=== PATIENT | male | born 1975 | race Caucasian/White ===

== ENCOUNTER 2019-07-29 23:26 | Observation (INO) | payer OTHER, SELFPAY ==
[2019-07-29 23:27] VITALS: BP 133/116; PULSE 179; RESP 18; TEMP 36.2; O2SAT 96; BMI 31.7
[2019-07-29 23:32] VITALS: BP 124/90; PULSE 99; RESP 16; O2SAT 94
--- NOTE | 2019-07-29 23:32 | EKG12_ITS ---
Test Reason : CP Blood Pressure : / mmHG Vent. Rate : 096 BPM Atrial Rate : 096 BPM P-R Int : 176 ms QRS Dur : 088 ms QT Int : 326 ms P-R-T Axes : 038 -01 004 degrees QTc Int : 411 ms Normal sinus rhythm Normal ECG Confirmed by RAN ESCOBAR, ANGELINE ([id number]), purchasing expeditor BRIANNA KNIGHT ([id number]) on 08/01/2019 10:37:42 AM Referred By: DARNELL Confirmed By:ANGELINE TONG MD
--- NOTE | 2019-07-29 23:34 | ED.DCSUM_ITS ---
History of Present Illness Chief Complaint: Chest Pain Informant: Patient Onset: Today Current Severity: Moderate Maximum Severity: Moderate Narrative: Patient presents with chest pressure, pressure into his neck, tingling in his left arm, and his syncopal episode earlier this evening. He states that for the past couple of months with exertion he will have similar symptoms, but tonight was more intense than normal. He denies shortness of breath. Denies significant past medical history. Past Medical History - Allergies and Home Meds Allergies/Adverse Reactions: Allergies bee venom protein (honey bee) Allergy (Verified 07/29/19 23:37) Anaphylaxis Past Medical History: None Lives: With Family Review of Systems General: Denies: Chills, Fever Eyes: Denies: Visual changes - bilaterally ENT: Denies: Bilateral ear pain Cardiovascular: Reports: Chest pain Respiratory: Denies: Dyspnea, Cough Gastrointestinal: Denies: Abdominal pain, Nausea, Vomiting, Diarrhea Genitourinary: Denies: Dysuria Musculoskeletal: Denies: Swelling, Extremity Pain Skin: Denies: Rash Neurological: Denies: Headache Hematologic: Denies: Easy bruising, Easy bleeding Allergy: Denies: Uticaria Physical Exam Vital Signs/Narrative: Vital Signs Temp Pulse Resp BP Pulse Ox 07/29/19 23:27 97.1 F L 179 H 18 133/116 H 96 Inital Vital Signs reviewed: Yes General: Well nourished, Well developed Head: Normocephalic ENT: Moist mucous membranes Neck: Supple Cardiovascular: Regular rate, Regular rhythm Respiratory: No distress, CTA bilaterally Abdomen: Soft, Nontender Extremities: Nontender Skin: Normal color, No rash Neurological: Alert, Oriented x3 Psychological: Normal affect Diagnostic/Tx/Re-eval Impressions Chest X-Ray 07/29/19 23:48 IMPRESSION: Normal x-ray examination of the chest. Electronically Signed: Evan Nixon MD at 0:00 EDT , Service support , 07/29/19 23:48 Chest 1 View (Portable) [RAD] Stat Laboratory Results 07/29/19 07/29/19 23:30 23:30 WBC 10.2 RBC 5.23 Hgb 14.2 Hct 44.2 MCV 84.5 MCH 27.2 MCHC 32.1 RDW Std Deviation 42.3 RDW Coeff of Karma 13.7 Plt Count 290 MPV 10.4 Immature Gran % (Auto) 0.200 Neut % (Auto) 37.9 L Lymph % (Auto) 49.8 H [place] % (Auto) 7.5 Eos % (Auto) 4.0 Baso % (Auto) 0.6 Absolute Neuts (auto) 3.9 Absolute Lymphs (auto) 5.07 H Nucleated RBC % 0 Sodium 144 Potassium 3.7 Chloride 106 Carbon Dioxide 30.0 Anion Gap 8 BUN 18 Creatinine 1.15 Estim Creat Clear Calc 80.96 Est GFR (MDRD) Af Amer 90 Est GFR (MDRD) Non-Af 74 BUN/Creatinine Ratio 15.7 Glucose 129 H Calcium 9.3 Troponin I 0.316 H TSH 4.49 H - EKG Initial EKG Interpretation: Sinus Rhythm - Sinus at 96. 1/2 mm depression in aVF. T inversion in lead III. - Medical Decision Making I entered the exam room patient was in SVT with heart rate in the 180s. While we were talking and I was getting his history nursing staff was starting an IV line. Patient spontaneously converted to a sinus rhythm. Patient's heart rate has maintained in the 90s. On repeat exam patient states his symptoms are completely resolved. His troponin is elevated. I spoke with Dr. Kamara who recommended a dose of Lovenox at this time and he will see the patient in the morning to determine next step in his treatment. I will speak with the hospitalist. ED Disposition - Plan for ED Patient: Disposition: Acute Care Hospital [facility] Diagnosis: SVT (supraventricular tachycardia), Elevated troponin
--- NOTE | 2019-07-29 23:34 | ED.RN ---
NO OLD EKGS IN MUSE
[2019-07-29] MEDS: 0.9% Normal Saline 1,000 ML 150 ML IV (23:42)
[2019-07-29] MEDS: Aspirin 81 MG TAB.CHEW 324 MG PO (23:42)
[2019-07-29 23:44] LABS: Absolute Lymphocyte Count 5.07 X10^3/uL (0.83-4.51); Absolute Neutrophil Count 3.9 X10^3/uL (2.0-7.7); Basophil# 0.06 X10^3/uL; Basophil% 0.6 % (0-1); Eosinophil# 0.41 X10^3/uL; Hematocrit 44.2 % (40-54); Hemoglobin 14.2 g/dL (13.0-16.5); Lymphocyte # 5.07 X10^3/ul (4.0); Lymphocyte % 49.8 % (19-41); Mean Corp Hgb Conc 32.1 g/dL (32-36); Mean Corpuscular Hgb 27.2 pg (27.0-32.0); Mean Corpuscular Volume 84.5 fL (80-94); Mean Platelet Vol. 10.4 fl (6.2-12.0); Monocyte# 0.76 X10^3/uL; Monocyte% 7.5 % (0-10); NRBC Flagged by Analyzer 0 % (0-5); Neutrophil # 3.87 X10^3/uL (2.7-7.7); Neutrophil % 37.9 % (47-70); POSITIVE DIFFERENTIAL YES; Platelet Count 290 K/mm3 (150-450); RBC Distribution Width CV 13.7 % (11.6-14.6); RBC Distribution Width SD 42.3 fl (35.1-43.9); Red Blood Count 5.23 M/mm3 (4.6-6.2); White Blood Count 10.2 K/mm3 (4.4-11.0)
[2019-07-29 23:47] LABS: Differential Indicated SCAN CRITERIA MET
--- NOTE | 2019-07-29 23:48 | RAD_ITS ---
STUDY: X-RAY CHEST REASON FOR EXAM: Male, 44 years old. CHEST PAIN, SYNCOPAL EPISODE TONIGHT, LEFT ARM NUMBNESS TECHNIQUE: Frontal view COMPARISON: None. FINDINGS: The lungs are clear and expanded. There is scattered calcified granulomas. There are NO infiltrates, effusions or pneumothoraces. Normal size heart. Normal mediastinum and kd. Normal visualized pulmonary arteries. Normal visualized aortic arch and descending thoracic aorta. Normal visualized thoracic spine. Normal visualized ribs, clavicles, and shoulders. There is no demonstrated abnormality of the visualized soft tissue structures of the upper abdomen. RAD/Chest 1 View (Portable) IMPRESSION: Normal x-ray examination of the chest. Electronically Signed: Evan Nixon MD at 0:00 EDT , Service support ,
[2019-07-30] VITALS (20 sets, daily range): BP systolic 101–132; BP diastolic 61–85; PULSE 81–92; RESP 14–20; TEMP 36.6–36.9; O2SAT 94–98; BMI 31.9
[2019-07-30 00:01] LABS: Anion Gap 8 (5-15); BUN 18 mg/dL (7-18); BUN/Creat Ratio 15.7 RATIO (10-20); Calcium,Total 9.3 mg/dL (8.5-10.1); Chloride 106 mmol/L (98-107); Creatinine, Serum 1.15 mg/dL (0.70-1.30); EST Glomerular Filtration Rate 74 mL/min (>60); Est Glom Filt Rate - Afr Amer 90 mL/min (>60); Estimated Creatinine Clearance 80.96 ml/min; Glucose 129 mg/dL (74-106); Potassium 3.7 mmol/L (3.5-5.1); Sodium Level 144 mmol/L (136-145); Thyroid Stim Hormone (TSH) 4.49 uIU/mL (0.358-3.74)
[2019-07-30 00:51] LABS: Platelet Estimate ADEQUATE (ADEQ); Reactive Lymphocyte 1+; Red Cell Morphology NORM C+C NORMAL (NORM C&C)
--- NOTE | 2019-07-30 00:52 | HP.PCM_ITS ---
Problem List (1) Elevated troponin Status: Acute (2) SVT (supraventricular tachycardia) Status: Acute History of Present Illness Date of Admission: 07/30/19 Chief Complaint: rapid heart rate, near sycope The patient is a 44 year old patient with no significant past medical history presents the emergency room after nearly passing out this evening due to rapid heart rate. The patient describes having abnormal exertional fatigue beginning 1 month ago. 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 He describes having some chest heaviness with exertion and feels that his arms get bilaterally tingly. Upon arrival to the emergency room his heart rate was 180 which subsequently converted spontaneously. His initial troponin was 0.3 and due to this it was felt necessary to admit the patient to the progressive unit for further cardiac work-up. Currently he is resting comfortably without any chest pain or shortness of breath and no history of fevers or chills or COVID exposure. Past Medical History Allergies bee venom protein (honey bee) Allergy (Verified 07/29/19 23:37) Anaphylaxis Home Medications: Ambulatory Orders Medication Instructions Recorded NK 07/29/19 Lives: With Family Smoking Status: Never smoker - *Family History Maternal History Items: No pertinent history Review of Systems Constitutional: Denies: Chills, Fever, Weight Change HEENT: Denies: Head Aches, Sinus Congestion, Sinus Drainage Cardiovascular: Reports: Heaviness, Light Headedness, Palpitations, Syncope. Denies: Chest Pain Respiratory: Reports: Shortness of breath upon exertion. Denies: Cough, Shortness of breath at rest, Sputum production Gastrointestinal: Denies: Abdominal Pain, Nausea, Vomiting Genitourinary: Denies: Dysuria Musculoskeletal: Denies: Joint Pain, Joint Tenderness Skin: Denies: Rash, Wounds Neurological: Denies: Numbness, Tingling, Focal weakness Psychiatric: Denies: Anxiety, Depression, Homicidal Ideations, Suicidal Ideations Hematologic/ Lymphatic: Denies: Easy Bruising, Easy Bleeding VTE Information - Inpt Only VTE Present on Admission: No VTE Mechan Device Prophylaxis: None VTE Pharm Prophylaxis ordered?: Yes Patient Problems: Active and Suspected Problems SVT (supraventricular tachycardia) (Acute) Elevated troponin (Acute) - Physical Exam Vitals/I&O's: Vital Signs Temp Pulse Resp BP Pulse Ox 98.2 F 92 19 H 121/82 H 97 07/30/19 00:49 07/30/19 00:49 07/30/19 00:49 07/30/19 00:49 07/30/19 00:49 Oxygen Flow Rate (L/min) 2 Oxygen Delivery Method Nasal Cannula Weight: 208 lb 8.917 oz Body Mass Index (BMI) 31.7 General: Alert, Oriented x3, Cooperative HEENT: Atraumatic, Normocephalic Neck: Supple, No JVD Lungs: Clear to auscultation, Normal air movement Cardiovascular: Regular rate, Normal S1, Normal S2, No murmurs Abdomen: Bowel Sounds Present, Soft, Non Tender Extremities: No edema Skin: No rashes Musculoskeletal: No Tenderness to Palpation of Joints or Extremities Neurological: Neuro grossly intact Psych/Mental Status: Normal Affect, Appropriate Laboratory Results 07/29/19 23:30: WBC 10.2, RBC 5.23, Hgb 14.2, Hct 44.2, MCV 84.5, MCH 27.2, MCHC 32.1, RDW Std Deviation 42.3, RDW Coeff of Akrma 13.7, Plt Count 290, MPV 10.4, Immature Gran % (Auto) 0.200, Neut % (Auto) 37.9 L, Lymph % (Auto) 49.8 H, [place] % (Auto) 7.5, Eos % (Auto) 4.0, Baso % (Auto) 0.6, Absolute Neuts (auto) 3.9, Absolute Lymphs (auto) 5.07 H, Nucleated RBC % 0, Differential Comment COMMENT, Reactive Lymphocytes 1+, Platelet Estimate ADEQUATE, RBC Morphology NORM C+C 07/29/19 23:30: Sodium 144, Potassium 3.7, Chloride 106, Carbon Dioxide 30.0, Anion Gap 8, BUN 18, Creatinine 1.15, Estim Creat Clear Calc 80.96, Est GFR (MDRD) Af Amer 90, Est GFR (MDRD) Non-Af 74, BUN/Creatinine Ratio 15.7, Glucose 129 H, Calcium 9.3, Troponin I 0.316 H, TSH 4.49 H Current Medications Sodium Chloride () 1,000 mls @ 150 mls/hr IV .Q6H40M [facility] Last Admin: 07/29/19 23:42 Dose: 150 mls/hr Documented by: Assessment/Plan All Active Problems SVT (supraventricular tachycardia) (Acute) Elevated troponin (Acute) Plan 1. Supraventricular tachycardia/elevated troponin?admit patient to progressive care unit, consult Dr. Kamara, make patient n.p.o. due to potential for heart catheterization. Cycle cardiac enzymes per routine, IV normal saline at 125 cc/h, repeat BMP, FLP, PT/INR in a.m. add therapeutic dose of Lovenox, and aspirin 2. VT prophylaxis?patient is already on Lovenox Inpatient E&M: [id number] Init Hosp L3
[2019-07-30] MEDS: Enoxaparin 100 MG/ML Syringe 90 MG SC (01:03)
[2019-07-30] MEDS: 0.9% Normal Saline 1,000 ML 125 ML IV (02:14)
[2019-07-30 05:50] LABS: International Normalized Ratio 1.1; Prothrombin Time (Protime)PT. 13.8 SECONDS (11.7-14.9)
[2019-07-30 06:01] LABS: ALB/GLOB Ratio 0.9 RATIO (0.9-2.4); AST(SGOT) 22 U/L (15-37); Alanine Aminotransfer ALT/SGPT 47 U/L (16-61); Albumin, Serum 3.2 g/dL (3.2-5.0); Alkaline Phosphatase 47 U/L (45-117); Anion Gap 7 (5-15); BUN 14 mg/dL (7-18); BUN/Creat Ratio 14.4 RATIO (10-20); Calcium,Total 8.6 mg/dL (8.5-10.1); Chloride 108 mmol/L (98-107); Creatinine, Serum 0.97 mg/dL (0.70-1.30); EST Glomerular Filtration Rate 90 mL/min (>60); Est Glom Filt Rate - Afr Amer 109 mL/min (>60); Estimated Creatinine Clearance 92.75 ml/min; Globulin 3.5 g/dL (2.2-4.2); Glucose 103 mg/dL (74-106); Magnesium 2.2 mg/dL (1.6-2.6); Phosphorus 3.9 mg/dL (2.5-4.9); Potassium 3.7 mmol/L (3.5-5.1); Protein, Total 6.7 g/dL (6.4-8.2); Sodium Level 142 mmol/L (136-145)
[2019-07-30] MEDS: Clopidogrel Bisulfate 300 MG Tablet PO (06:14)
[2019-07-30] MEDS: Aspirin 81 MG TAB.CHEW PO (06:14)
[2019-07-30] MEDS: 0.9% Saline Lock 10 ML Syringe IV (06:14)
--- NOTE | 2019-07-30 07:23 | CON.PCM_ITS ---
Reason for Consult Date of Consultation: 07/30/19 Reason for Consultation: Near syncope and fast heart rate History of Present Illness: The patient is a 44 year old M with no previous cardiac history who says that he has been fatigued over the last month or so. He has also noted occasional racing of his heart. Yesterday he noticed that he was having palpitations as well as a near syncopal episode and he decided to come to the emergency room. In the emergency room he was noted to have a narrow complex tachycardia with a rate in excess of 140 bpm. Unfortunately they could not record this definitively. He converted spontaneously to sinus rhythm. He had also been having some chest discomfort as well as left arm discomfort. He has not had any tracie syncopal episodes and has had some diaphoresis. His initial EKG in the ER did not show any significant abnormalities his initial troponin was mildly abnormal subsequently through the night he did have an elevation in his cardiac enzymes to approximately 0.8. He does not have any previous cardiac history. He is usually accustomed to heavy exercise. [] Past Medical History Allergies/Adverse Reactions: Allergies bee venom protein (honey bee) Allergy (Verified 07/29/19 23:37) Anaphylaxis Home Medications: Ambulatory Orders Medication Instructions Recorded NK 07/29/19 - *Family History Maternal History Items: No pertinent history Lives: With Family Smoking Status: Never smoker Alcohol: None Drugs: None Review of Systems - Review of Systems General: Denies: Fever, Night Sweats, Fatigue HEENT: Denies: Vision Change Cardiovascular: Reports: Chest Discomfort, Chest Pressure, Shortness of Breath with Exertion, Palpitations. Denies: Shortness of Breath, Orthopnea, PND, Peripheral Edema, Lightheadedness, Dizziness, Near Syncope, Syncope Respiratory: Denies: Cough, Sputum Production, Hemoptysis Gastrointestinal: Denies: Hematemesis, Hematochezia, Melena Genitourinary: Denies: Dysuria, Hematuria Muscoloskeletal: Denies: Myalgias Skin: Denies: Rash Psychiatric: Denies: Anxiety Endocrine: Denies: Unexplained Weight Loss Hematologic/ Lymphatic: Denies: Anemia Subjectve: Pleasant gentleman in no distress Objective: Vital Signs Temp Pulse Resp BP Pulse Ox 97.9 F 86 16 112/72 97 07/30/19 06:50 07/30/19 06:50 07/30/19 06:50 07/30/19 06:50 07/30/19 06:50 Oxygen Flow Rate (L/min) 2 Oxygen Delivery Method Room Air Weight: 203 lb 14.841 oz Body Mass Index (BMI) 31.9 Orthostatic Vital Signs Start: 07/30/19 02:14 Freq: q24h Status: Active Protocol: Activity Type Activity Date Activity User E-Sign Co-Sign Detail Recorded Client Recorded Date Recorded By Document 07/30/19 02:14 [id number] 07/30/19 02:18 07/30/19 02:14 Orthostatic Vitals Standing -Blood Pressure (90/60-120/80) 114/79 -Extremity Use Left Arm -Pulse Rate (60-100) 90 Sitting -Blood Pressure (90/60-120/80) 113/71 -Extremity Use Left Arm -Pulse Rate (60-100) 88 Lying -Blood Pressure (90/60-120/80) 101/76 -Extremity Use Left Arm -Pulse Rate (60-100) 86 Intake and Output for Last 24 Hours 07/28/19 07/29/19 07/30/19 23:59 23:59 23:59 Intake Total 882.08 / 882.08 Balance 882.08 / 882.08 General: Awake, Alert, Oriented x 3 HEENT: PERRL, EOMI, Sclera Non Icteric Neck: Supple, Good ROM, No Lymph Node Enlargement Lungs: Clear to auscultation Cardiovascular: Regular Rhythm, Normal S1, Normal S2, No Murmurs, No Rubs, No Gallops Vascular: No Carotid Bruits, Normal Femoral Pulses, Normal Radial Pulses, Normal Dorsalis Pedal Pulse, Normal Posterior Tibial Pulses Abdomen: Bowel Sounds Present, Soft, Non Tender, No HSM, No Organomegaly Extremities: No Cyanosis, No Clubbing, No edema Musculoskeletal: No Erythema Skin: No Rashes Lymphatic: No Lymph Node Enlargement Neurological: No Focal Motor or Sensory Deficit Psych/Mental Status: Appropriate 07/29/19 23:30: WBC 10.2, RBC 5.23, Hgb 14.2, Hct 44.2, MCV 84.5, MCH 27.2, MCHC 32.1, Plt Count 290, MPV 10.4, Immature Gran % (Auto) 0.200, Neut % (Auto) 37.9 L, Lymph % (Auto) 49.8 H, [place] % (Auto) 7.5, Eos % (Auto) 4.0, Baso % (Auto) 0.6, Absolute Neuts (auto) 3.9, Nucleated RBC % 0 07/29/19 23:30: Sodium 144, Potassium 3.7, Chloride 106, Carbon Dioxide 30.0, Anion Gap 8, BUN 18, Creatinine 1.15, Est GFR (MDRD) Af Amer 90, Est GFR (MDRD) Non-Af 74, BUN/Creatinine Ratio 15.7, Glucose 129 H, Calcium 9.3, Troponin I 0.316 H 07/30/19 02:27: Troponin I 0.874 H* 07/30/19 05:15: PT 13.8, INR 1.1 07/30/19 05:15: Sodium 142, Potassium 3.7, Chloride 108 H, Carbon Dioxide 27.0, Anion Gap 7, BUN 14, Creatinine 0.97, Est GFR (MDRD) Af Amer 109, Est GFR (MDRD) Non-Af 90, BUN/Creatinine Ratio 14.4, Glucose 103, Calcium 8.6, Phosphorus 3.9, Magnesium 2.2, Total Bilirubin 0.30 07/30/19 05:15: Troponin I 0.812 H* Rhythm: EKG: Normal sinus rhythm with no acute changes ECHO: Pending Stress Test: Cardiac Cath: PCI: CT Surgery: Holter monitor: EPS: PPM: CXR: Chest CT Scan: Assessment/Plan 1. Non-ST elevation myocardial infarction * Patient presents with near syncopal episode is noted to be in a narrow complex tachycardia and has a non-ST elevation myocardial infarction. It is not clear whether the above is secondary to underlying coronary artery disease or whether this is a primary electrical phenomenon. * My recommendation at this time would be to start aspirin, clopidogrel, and proceed with a left heart catheterization. Depending on the results further recommendations would be made. The risk benefits alternatives of been explained to him he understands and agrees to proceed. * 2. Probable supraventricular tachycardia * The ER physician witnessed a narrow complex tachycardia. There is no definitive documentation of the above however. Depending on the results of the catheterization further recommendations will be made. It may include a 30-day event monitor to attempt to see whether 1 can conclusively document the above. * * Thank you for allowing me to participate in the care of your patient. Please don't hesitate to call if any issues arise.
--- NOTE | 2019-07-30 08:11 | PN_ITS ---
Progress Note Cardiac catheterization performed today demonstrated no obstructive coronary disease. Left ventricular ejection fraction is noted to be normal. Therefore appears that the above is secondary to her primary electrical phenomenon. * Would recommend addition of beta-fany to his regimen Toprol-XL 25 mg a day * 30-day event monitor as an outpatient * Will follow-up in the office in a month STROKE Vital Signs/Narrative: Vital Signs Temp Pulse Resp BP Pulse Ox 07/30/19 07:45 95 07/30/19 07:00 83 07/30/19 06:50 97.9 F 86 16 112/72 97 07/30/19 06:10 98.4 F 81 16 105/61 94
--- NOTE | 2019-07-30 08:17 | CL.D_ITS ---
Patient Name: RENEA HAZEL Study Date: 07/30/2019 Performing: Niles Kamara MD Ht: 67 inches 170 cm : 1975 Wt: 205.3 lbs 93 kg Age: 44 Gender: male BSA: 2.04 PROCEDURE(S) PERFORMED HF12-PVQ/COR/LV CLINICAL PROFILE AND INDICATIONS Indications: Cardiac Arrythmia Heart Failure: None Stress/Imaging Stress/Image Study Performed: No CONCLUSIONS Normal coronary arteries Normal LV size, wall motion,and systolic function RECOMMENDATIONS Medical therapy will place event monitor to asses SVT DESCRIPTION OF PROCEDURE The patient arrived to the procedure lab. The risks and benefits of the procedure as well as a full d escription of our services here and current unavailability of surgical backup were fully explained to the patient and/or their significant other prior to the catheterization. The Timeout was completed, verifying the correct patient and procedure. The patient's procedural site was prepped and draped in the usual fashion. Local anesthetic was given subcutaneously to right groin region with Lidocaine 2%. Using a modified Seldinger technique, arterial access was obtained via the right femoral artery, a 5 Fr sheath was inserted. Left Coronary Artery selective angiography was performed in multiple views u sing a 5 Fr. JL4 catheter. Right Coronary Artery selective angiography was then performed in multiple views using a 5 Fr. 3DRC (Ananth) catheter. Left Ventriculography was performed in RILEY projection using a 5 Fr. Pigtail catheter. LV to AO pullback pressures were then recorded.Contrast was injected through the sheath and the Right Iliac and Femoral artery were assessed for possible chino sure device.The arterial sheath was pulled and a Mynx closure device was deployed for hemostasis CORONARY ANGIOGRAPHY DOMINANCE: Right Dominant LEFT HEART ASSESSMENT Left Ventricular Ejection Fraction: by LV Gram 60 % Normal LV wall motion Normal Left Ventricular systolic function Normal Left Ventricular systolic function LEFT MAIN: Angiographically normal LEFT ANTERIOR DESCENDING ARTERY: Angiographically normal CIRCUMFLEX ARTERY: Angiographically normal RIGHT CORONARY ARTERY: Angiographically normal COMPLICATIONS No Complications PROCEDURE MEDICATIONS Versed 1 mg IV Oxygen: 2 L/min via nasal cannula SUMMARY OF HEMODYNAMIC DATA Time AIR REST ECG 07:39:10 AO 108/76 (93) SA 07:54:16 LV 103/9, 20 07:59:10 LV 107/9, 17 07:59:16 LV 106/13, 20 08:00:12 LV 106/12, 19 08:00:21 AO 106/72 (88) 08:00:26 Signed By Niles Kamara MD On 07/30/2019 08:17:21 Niles Kamara MD
[2019-07-30 08:21] LABS: Free T3 3.2 pg/mL (2.18-3.98); T4 Free Direct 0.81 ng/dL (0.76-1.46)
--- NOTE | 2019-07-30 11:13 | PCM.DC ---
- Discharge Diagnoses Current Active Problems: Current Active and Chronic Problems SVT (supraventricular tachycardia) (Acute) Elevated troponin (Acute) You will use the following diet at home:: Cardiac Your food should be the consistency of: Regular Your liquids should be the consistency of: Regular/Thin Discharge Activity: Return to Normal Activity Weight Bearing Status: Weight bearing as tolerated Call your doctor if you observe: Fever of 101 or Higher, Shortness of breath, Dizziness, Chest pain, Increased palpitations (irregular heartbeat) Instructions: ED Tachycardia PAT Additional Instructions: to wear 30 day holter monitor; rsults to be sent to Dr Kamara Allergies/Adverse Reactions: Allergies bee venom protein (honey bee) Allergy (Verified 07/29/19 23:37) Anaphylaxis Medications to take at Discharge Metoprolol(XL)Succ [Toprol Xl (Beta [place])] 25 mg PO DAILY #30 tab 07/30/19 The following prescriptions were given: Metoprolol(XL)Succ [Toprol Xl (Beta [place])] 25 mg PO DAILY #30 tab Transmission Status: Pending to [id number] Primary Care Physician: Dyan Ríos NP-C [Primary Care Provider] - Please follow up with your Primary Care Physician in: 1-2 weeks Test Results: Test results from this visit will be discussed in further detail at your follow-up appointment, if applicable. Please Follow Up With: Niles Kamara MD When: 1-2 weeks Proposed Discharge Date: 07/30/19
--- NOTE | 2019-07-30 11:23 | PCM.DC.SUM ---
Discharge Date and Diagnosis - Problem List Patient Problems: Active and Suspected Problems SVT (supraventricular tachycardia) (Acute) Elevated troponin (Acute) Date of Admission: 07/30/19 Date of Discharge: 07/30/19 - Primary Discharge Diagnosis Acute Problems: Active Problems SVT (supraventricular tachycardia) (Acute) Elevated troponin (Acute) Hospital Course and Treatment Imaging Results: Diagnostic Data Chest X-Ray 07/29/19 23:48 IMPRESSION: Normal x-ray examination of the chest. Electronically Signed: Evan Nixon MD at 0:00 EDT , Service support , cardiology- Dr Kamara Operations: None Procedures: Cardiac catheterization Summary of Care Provided: The patient is a 44 year old M with no significant past medical history who was admitted through the ED in the early hours of 07/30/2019 with a complaint of palpitations. Patient said he has started having abdominal exertional fatigue about 1 month prior to admission and had also been getting intermittent chest heaviness with exertion. On day of admission, he nearly passed out due to his rapid heart rate. On admission in the ED his heart rate was 118 which subsequently converted spontaneously to normal sinus rhythm. Initial troponin was 0.3 which trended up to a peak of 0.812. TSH was 4.49 but free T4 was 0.81 and free T3 was 3.2 which were within normal limits. CBC and BMP were unremarkable. Chest x-ray showed no acute cardiopulmonary process. He was admitted to be managed for palpitations likely due to SVT. Cardiology was consulted. Patient had cardiac cath on 07/30/2019 which showed normal coronary arteries with normal left ventricular size, wall motion and systolic function with EF estimated to be 65%. Patient remained stable and was started on p.o. metoprolol 25 mg daily. Cardiology ordered a 30-day event monitor for patient and patient remained stable and was discharged home on 07/30/2019. He is to follow-up with his primary care doctor and cardiology within 1 to 2 weeks. Patient seen and examined prior to discharge. He had no complaints and felt well. Review of symptoms otherwise negative. He denied any tachycardia. Labs and vitals reviewed. Home medications reviewed and reconciled. Patient Problems: Active and Suspected Problems SVT (supraventricular tachycardia) (Acute) Elevated troponin (Acute) - Physical Exam Vitals/I&O's: Vital Signs Temp Pulse Resp BP Pulse Ox 97.9 F 84 14 117/71 95 07/30/19 06:50 07/30/19 10:30 07/30/19 10:30 07/30/19 10:30 07/30/19 10:30 Oxygen Flow Rate (L/min) 2 Oxygen Delivery Method Room Air Weight: 203 lb 14.841 oz Body Mass Index (BMI) 31.9 Orthostatic Vital Signs Start: 07/30/19 02:14 Freq: q24h Status: Active Protocol: Activity Type Activity Date Activity User E-Sign Co-Sign Detail Recorded Client Recorded Date Recorded By Document 07/30/19 02:14 CS [id number] 07/30/19 02:18 CS 07/30/19 02:14 Orthostatic Vitals Standing -Blood Pressure (90/60-120/80) 114/79 -Extremity Use Left Arm -Pulse Rate (60-100) 90 Sitting -Blood Pressure (90/60-120/80) 113/71 -Extremity Use Left Arm -Pulse Rate (60-100) 88 Lying -Blood Pressure (90/60-120/80) 101/76 -Extremity Use Left Arm -Pulse Rate (60-100) 86 Intake and Output for Last 24 Hours 07/28/19 07/29/19 07/30/19 23:59 23:59 23:59 Intake Total 1380.00 / 1380.00 Balance 1380.00 / 1380.00 General: Alert, Oriented x3, Cooperative HEENT: Atraumatic, PERRLA, EOMI, Normocephalic Neck: Supple, No JVD, Negative Carotid Bruits Lungs: Clear to auscultation, Normal air movement Cardiovascular: Regular rate, No murmurs Abdomen: Bowel Sounds Present, Soft, Non Tender Extremities: No edema, Capillary Refill Less than 3 Seconds Skin: No rashes, No breakdown Musculoskeletal: No Tenderness to Palpation of Joints or Extremities, - - right groin cath site has clean dressing in place, nontender and no bleeding. Neurological: Cranial nerves II-XII grossly intact, Neuro grossly intact, Motor Exam 5/5 strength throughout Psych/Mental Status: Normal Affect, Appropriate, Alert and oriented to time, place, person, mood and affect Laboratory Results 07/29/19 23:30: WBC 10.2, RBC 5.23, Hgb 14.2, Hct 44.2, MCV 84.5, MCH 27.2, MCHC 32.1, RDW Std Deviation 42.3, RDW Coeff of Karma 13.7, Plt Count 290, MPV 10.4, Immature Gran % (Auto) 0.200, Neut % (Auto) 37.9 L, Lymph % (Auto) 49.8 H, [place] % (Auto) 7.5, Eos % (Auto) 4.0, Baso % (Auto) 0.6, Absolute Neuts (auto) 3.9, Absolute Lymphs (auto) 5.07 H, Nucleated RBC % 0, Differential Comment COMMENT, Reactive Lymphocytes 1+, Platelet Estimate ADEQUATE, RBC Morphology NORM C+C 07/29/19 23:30: Sodium 144, Potassium 3.7, Chloride 106, Carbon Dioxide 30.0, Anion Gap 8, BUN 18, Creatinine 1.15, Estim Creat Clear Calc 80.96, Est GFR (MDRD) Af Amer 90, Est GFR (MDRD) Non-Af 74, BUN/Creatinine Ratio 15.7, Glucose 129 H, Calcium 9.3, Troponin I 0.316 H, TSH 4.49 H 07/30/19 02:27: Troponin I 0.874 H* 07/30/19 05:15: PT 13.8, INR 1.1 07/30/19 05:15: Sodium 142, Potassium 3.7, Chloride 108 H, Carbon Dioxide 27.0, Anion Gap 7, BUN 14, Creatinine 0.97, Estim Creat Clear Calc 92.75, Est GFR (MDRD) Af Amer 109, Est GFR (MDRD) Non-Af 90, BUN/Creatinine Ratio 14.4, Glucose 103, Calcium 8.6, Phosphorus 3.9, Magnesium 2.2, Total Bilirubin 0.30, AST 22, ALT 47, Alkaline Phosphatase 47, Total Protein 6.7, Albumin 3.2, Globulin 3.5, Albumin/Globulin Ratio 0.9 07/30/19 05:15: Troponin I 0.812 H* 07/30/19 05:15: Free T4 0.81, Free T3 pg/dL 3.2 Diagnostic Data Chest X-Ray 07/29/19 23:48 IMPRESSION: Normal x-ray examination of the chest. Electronically Signed: Evan Nixon MD at 0:00 EDT , Service support , Current Medications Heparin Sodium (Beef Lung) (Heparin 500 Unit/5 Ml (100/Ml)) 500 unit IV UD PRN PRN Reason: HEPARIN FLUSH Sodium Chloride () 1,000 mls @ 125 mls/hr IV .Q8H AURELIANO Last Infusion: 07/30/19 11:16 Dose: Infused Documented by: Sodium Chloride () 250 mls @ 15 mls/hr IV .[id number] PRN PRN Reason: Saline Flush Sodium Chloride () 250 mls @ 15 mls/hr IV .[id number] PRN PRN Reason: Additional IVPB Infusion Sodium Chloride () 1,000 mls @ 15 mls/hr IV .Q48H AURELIANO Labetalol HCl (Trandate) 5 mg IV X1 PRN PRN Reason: SBP > 160 prior to sheath pull Stop: 08/01/19 08:10 Metoprolol Succinate (Toprol Xl (Beta [place])) 25 mg PO DAILY AURELIANO Nitroglycerin (Nitrostat) 0.4 mg SUBLINGUAL Q5M PRN PRN Reason: CARDIAC/CHEST PAIN Ondansetron HCl (Zofran) 4 mg IV Q8H PRN PRN PRN Reason: NAUSEA/VOMITING Sodium Chloride () 10 - 40 ml IV UD PRN PRN Reason: SALINE FLUSH Last Admin: 07/30/19 06:14 Dose: 10 ml Documented by: Discharge Diet: Low fat/ Low Cholesterol Discharge Activity: Return to Normal Activity Weight Bearing Status: Weight bearing as tolerated Call your doctor if you observe: Fever of 101 or Higher, Shortness of breath, Dizziness, Chest pain, Increased palpitations (irregular heartbeat) Home Medications: Medications to take at Discharge Metoprolol(XL)Succ [Toprol Xl (Beta [place])] 25 mg PO DAILY #30 tab 07/30/19 Following Prescrptions Were Given to Patient: Metoprolol(XL)Succ [Toprol Xl (Beta [place])] 25 mg PO DAILY #30 tab Transmission Status: Sent to [facility] Primary Care Physician: Samples,Dyan, RUSTIC TERRAZZO SETTER-C [Primary Care Provider] - Please follow up with your Primary Care Physician in: 1-2 weeks Please Follow Up With: Niles Kamara MD When: 1-2 weeks Patient Instructions: ED Tachycardia PAT Disposition: Home Minutes spent on discharge:: 45 Patient Condition:: Stable Medical Necessity - Tobacco Use Smoking Status: Never smoker Meaningful Use Info Meaningful Use Diagnoses (Choose all that apply): None applicable OBSV E&M: 77388 Observation care discharge
[2019-07-30] MEDS: Metoprolol(XL)Succ 25 MG Tablet PO (11:36)
== END 2019-07-30 08:10 | disposition home or self-care (01) ==
LOC: ED 07-30 00:37 → PCU 07-30 01:22
PROVIDERS: Admitting Provider Family Medicine; Emergency Provider Emergency Medicine; PCP Nurse Practitioner Family; Visit Provider Student in an Organized Health Care Education/Training Program
DX: I47.1 Supraventricular tachycardia (principal); R07.89 Other chest pain; R20.2 Paresthesia of skin; R55 Syncope and collapse; R79.89 Other specified abnormal findings of blood chemistry
CPT/HCPCS: 36415; 71045; 80048; 80053; 83735; 84100; 84439; 84443; 84481; 84484; 85025; 85610; 93005; 93458; 96360; 96361; 96372; 99152; 99153; 99218; 99285; C1760; J7030; Q9957; A4216; C1769; G0378; J0153; Q9967

== ENCOUNTER → 2020-09-07 09:52 | Outpatient (CLI) | payer SELFPAY ==
[2019-09-04 09:30] VITALS: BMI 31.0
[2020-09-07 11:35] LABS: Anion Gap 6 (5-15); BUN 12 mg/dL (7-18); BUN/Creat Ratio 11.7 RATIO (10-20); Chloride 105 mmol/L (98-107); Creatinine, Serum 1.03 mg/dL (0.70-1.30); EST Glomerular Filtration Rate 84 mL/min (>60); Est Glom Filt Rate - Afr Amer 101 mL/min (>60); Glucose 88 mg/dL (74-106); Magnesium 2.2 mg/dL (1.6-2.6); Potassium 3.9 mmol/L (3.5-5.1); Sodium Level 140 mmol/L (136-145); Thyroid Stim Hormone (TSH) 1.53 uIU/mL (0.358-3.74)
== END ==
PROVIDERS: PCP Nurse Practitioner Family; Referring Provider Nurse Practitioner Gerontology; Visit Provider Nurse Practitioner Gerontology
DX: I47.1 Supraventricular tachycardia (principal)
CPT/HCPCS: 36415; 80048; 83735; 84443

== ENCOUNTER 2022-02-28 11:12 | Observation (INO) | payer OTHER, SELFPAY ==
[2022-02-28] VITALS (9 sets, daily range): BP systolic 106–142; BP diastolic 69–118; PULSE 74–82; RESP 15–18; TEMP 36.4–36.8; O2SAT 96–99; BMI 32.8; BMI 30.9
--- NOTE | 2022-02-28 11:40 | RAD_ITS ---
HISTORY: CP. TECHNIQUE: XR Chest 1 View. COMPARISON: 07/29/2019. FINDINGS: CARDIOMEDIASTINAL BORDERS: Cardiac silhouette within normal limits in size. Mediastinal contour unremarkable. LUNGS: Calcified granuloma in the left midlung again seen. Minimal scarring in the left lung base. PLEURA: No pleural effusion or pneumothorax seen. OSSEOUS STRUCTURES: Unremarkable. RAD/Chest 1 View (Portable) IMPRESSION: No acute cardiopulmonary process identified. Electronically Signed: Kalee Baxter MD at 12:11 EST ,
--- NOTE | 2022-02-28 11:41 | EKG12_ITS ---
Test Reason : Blood Pressure : / mmHG Vent. Rate : 071 BPM Atrial Rate : 071 BPM P-R Int : 172 ms QRS Dur : 092 ms QT Int : 360 ms P-R-T Axes : 052 -04 -18 degrees QTc Int : 391 ms Sinus rhythm with occasional Premature ventricular complexes Otherwise normal ECG Confirmed by RAN ESCOBAR, ANGELINE ([id number]), story editor KATIE DIAZ ([id number]) on 03/01/2022 1:07:58 PM Referred By: Confirmed By:ANGELINE TONG MD
--- NOTE | 2022-02-28 11:43 | EDS_ITS ---
HPI History of Present Illness Chief Complaint: Chest Pain [facility] Medical History Elevated troponin (07/29/19) History of non-ST elevation myocardial infarction (NSTEMI) (07/29/19) Lyme disease Obesity (BMI 30.0-34.9) Paroxysmal supraventricular tachycardia (07/29/19) Syncope (07/29/19) TSH elevation (07/29/19) Upper limb weakness Home Medications NK 02/28/22 [History Last Taken Unknown] Allergy/AdvReac Type Severity Reaction Status Date / Time bee venom protein (honey bee) Allergy Anaphylaxis Verified 02/28/22 11:16 Surgical History Amputation finger History of left heart catheterization (07/30/19) Social History Smoking Status: Never smoker ROS ROS ED Constitutional Constitutional ED: Denies chills or fever(s) Eyes Eyes: Denies change in vision ENT ENT ED: Denies rhinorrhea or sore throat Cardiovascular Cardiovascular: Reports chest pain, palpitations and racing heartbeat Respiratory/Chest Respiratory/Chest: Reports dyspnea; Denies cough Gastrointestinal Gastrointestinal: Reports nausea; Denies vomiting Musculoskeletal Musculoskeletal: Denies back pain or neck pain Integumentary Denies rash Neurologic Neurologic: Denies paresthesias or weakness Endocrine Endocrinology: Denies polydipsia or polyuria Hematologic/Lymphatic Hematologic/Lymphatic: Denies lymphadenopathy Allergic/Immunologic Allergic/Immunologic ED: Denies urticaria EXAM Physical Exam Const Vital Signs: 02/28/22 11:13 02/28/22 11:17 Temperature 97.6 F L Temperature Source Oral Pulse Rate 74 Respiratory Rate 18 Blood Pressure 142/118 H Blood Pressure Mean 126 Pulse Ox 97 Oxygen Delivery Method Room Air Positive well nourished and well developed General Appearance ED: well developed and NAD HEENT Reports moist mucous membranes Eyes General Eye ED: Negative for scleral icterus Neck no lymphadenopathy Chest Wall inspection of chest normal and palpation of chest normal Resp normal respiratory effort and clear to auscultation bilaterally Effort and Inspection: Negative for pain with movement Cardio regular rate, regular rhythm and no murmurs Rate: Negative for bradycardia or tachycardic GI normal to inspection, nondistended, normoactive bowel sounds, soft to palpation and non-tender Back/Spine no CVA tenderness Extremity General Extremety ED: Negative for edema or tenderness General Extremity: Negative for edema Neuro oriented x3 Sensorium / Orientation: awake and alert Psych mental status grossly normal Skin no rashes or lesions noted MDM MDM MDM Narrative Medical decision making narrative: CBC shows no marked abnormalities. No anemia that could explain tachycardia in his symptoms. Electrolytes are overall normal. However, his troponin was high at 402. We did repeat EKG. It is really unchanged from the first time prior. Patient is still asymptomatic. I discussed the case with Dr. Iraheta. Considering this patient had tachycardia by symptoms, shortness of breath nausea and chest pain along with elevated troponin he will be admitted to the hospital. The suspicion in this patient is that his symptoms are likely caused by his tachycardia and demand ischemia. Although his heart cath is 2 and half years ago he had angiogr aphically normal coronaries and is very unlikely that he had obstructive symptoms causing his chest pain. Symptoms are resolved. I do not think this represents pulmonary embolus. He is not tachycardic or hypoxic. He has less than 50. I talked with him again. Although he was listed is being on metoprolol when he came in, he now states he is on the medicine but he has not taken it for a year. This might be contributing to his increased rate and symptoms. I discussed case with the hospitalist. I do not think he needs CTA looking for dissection or pulmonary embolus. His symptoms resolved with his tachycardia and are resolved at this time. Lab Data Attestation: I reviewed the patient's lab results. Labs: Laboratory Results - last 24 hr 02/28/22 02/28/22 11:17 11:17 WBC 9.5 RBC 5.38 Hgb 15.0 Hct 45.0 MCV 83.6 MCH 27.9 MCHC 33.3 RDW Std Deviation 40.6 RDW Coeff of Karma 13.3 Plt Count 243 MPV 10.4 Immature Gran % (Auto) 0.300 Neut % (Auto) 59.9 Lymph % (Auto) 31.6 [place] % (Auto) 6.8 Eos % (Auto) 0.8 Baso % (Auto) 0.6 Absolute Neuts (auto) 5.7 Absolute Lymphs (auto) 3.01 Nucleated RBC % 0 Sodium 140 Potassium 4.1 Chloride 107 Carbon Dioxide 29.0 Anion Gap 4 L BUN 14 Creatinine 1.01 Estim Creat Clear Calc 89.36 Est GFR (MDRD) Af Amer 103 Est GFR (MDRD) Non-Af 85 BUN/Creatinine Ratio 13.9 Glucose 105 Calcium 9.1 Troponin I High Sens 402 H* Radiography Diagnostic Testing: Clinical Impression(s) from Imaging Studies Chest X-Ray 02/28/22 11:40 IMPRESSION: No acute cardiopulmonary process identified. Electronically Signed: Kalee Baxter MD at 12:11 EST , Chest x-ray looked at by me and read by radiology shows no acute process EKG Initial EKG: Comments: EGD done for history of chest pain tachycardia read by me shows sinus rhythm with occasional PVCs. There is some J-point elevation anteriorly and T wave inversion inferiorly. However, this is similar to prior. HI int erval, QRS duration and QTc are normal. Discharge Plan Triage Chief Complaint: Chest Pain ED Provider: Jericho Coats Dx/Rx/DC Orders Clinical Impression: Non-ST elevation MA (NSTEMI), History of tachycardia, Chest pain Prescriptions: No Action NK Primary Care Provider: Dyan Ríos NP Referrals: Dyan Ríos NP, ESTATE ADMINISTRATOR-C [Primary Care Provider] - Disposition Disposition: Acute Care [facility]
[2022-02-28 11:50] LABS: Absolute Lymphocyte Count 3.01 X10^3/uL (0.83-4.51); Absolute Neutrophil Count 5.7 X10^3/uL (2.0-7.7); Basophil# 0.06 X10^3/uL; Basophil% 0.6 % (0-1); Eosinophil# 0.08 X10^3/uL; Eosinophils% 0.8 % (0-5); Lymphocyte # 3.01 X10^3/ul (0.83-4.51); Lymphocyte % 31.6 % (19-41); Mean Corp Hgb Conc 33.3 g/dL (32-36); Mean Corpuscular Hgb 27.9 pg (27.0-32.0); Mean Corpuscular Volume 83.6 fL (80-94); Mean Platelet Vol. 10.4 fl (6.2-12.0); Monocyte# 0.65 X10^3/uL; Monocyte% 6.8 % (0-10); NRBC Flagged by Analyzer 0 % (0-5); Neutrophil # 5.71 X10^3/uL (2.7-7.7); Neutrophil % 59.9 % (47-70); Platelet Count 243 K/mm3 (150-450); RBC Distribution Width CV 13.3 % (11.6-14.6); RBC Distribution Width SD 40.6 fl (35.1-43.9); Red Blood Count 5.38 M/mm3 (4.6-6.2); White Blood Count 9.5 K/mm3 (4.4-11.0)
[2022-02-28 12:10] LABS: Anion Gap 4 (5-15); BUN 14 mg/dL (7-18); BUN/Creat Ratio 13.9 RATIO (10-20); Calcium,Total 9.1 mg/dL (8.5-10.1); Chloride 107 mmol/L (98-107); Creatinine, Serum 1.01 mg/dL (0.70-1.30); EST Glomerular Filtration Rate 85 mL/min (>60); Est Glom Filt Rate - Afr Amer 103 mL/min (>60); Estimated Creatinine Clearance 89.36 ml/min; Glucose 105 mg/dL (74-106); Potassium 4.1 mmol/L (3.5-5.1); Sodium Level 140 mmol/L (136-145); Troponin-I HS 402 pg/mL (3.0-78.0)
--- NOTE | 2022-02-28 13:00 | EKG12_ITS ---
Test Reason : REPEAT-ELEV TROPONIN Blood Pressure : / mmHG Vent. Rate : 075 BPM Atrial Rate : 075 BPM P-R Int : 178 ms QRS Dur : 090 ms QT Int : 368 ms P-R-T Axes : 044 -05 -19 degrees QTc Int : 410 ms Sinus rhythm with occasional Premature ventricular complexes Otherwise normal ECG Confirmed by RAN ESCOBAR, ANGELINE ([id number]), staff editor KATIE DIAZ ([id number]) on 03/01/2022 1:08:19 PM Referred By: KEELY Confirmed By:ANGELINE TONG MD
--- NOTE | 2022-02-28 13:46 | NURSING ---
218 OBS AGUSTÍN ELEVATED TROP
--- NOTE | 2022-02-28 14:14 | HP.PCM.HOS_ITS ---
HPI - General General Date of Admission: 02/28/22 Date of Service: 02/28/22 Chief Complaint: Chest pain HPI Narrative RENEA HAZEL, is a 47 M who presented to the emergency department at [facility] on 02/28/2022 with a chief complaint of chest pain. The patient went to an urgent care for this and was sent to the emergency department because of his symptoms. The patient reports that about 7 PM last evening he developed what he described as a fizzy feeling all over his body. He reported that he gets this intermittently and it was felt to be related to an SVT that was diagnosed approximately 2 years ago. At that time he had cardiac catheterization which showed angiographically normal coronary arteries. He was discharged with an event monitor and asked to follow-up in the office. He was also placed on metoprolol at that time. Unfortunately, no events were captured on the event monitor and the patient reports he did not have any symptoms during the time the event monitor was placed. He indicates he has had a couple short lasting events in the last year and a half but nothing that lasted more than 1 t o 2 hours. When he experienced last night again started at 7 PM and he reports that ended approximately 7 AM today. It was coupled with chest pain, nausea, diaphoresis, and the fizzy feeling he had. He was to be on metoprolol 25 mg daily but stopped taking this approximately 1 year ago. He denies any significant caffeine intake. He does not smoke or use tobacco. He did indicate that he has some family history of coronary disease. His mother from CHF at the age of 72 and he reports that he had a uncle that at 35 on his father side from a massive myocardial infarction. He takes no medications at baseline. Vital signs at the time of presentation demonstrated a temperature of 97.6, heart rate 74, blood pressure 142/118, respiratory rate of 18 and oxygen saturation was 97% room air. His CBC was unremarkable. His chemistry panel was unremarkable. Serum troponin was 402. Sinus tachycardia with occasional PVC and J-point elevation anteriorly with T wave inversion inferiorly however no change since previous. All intervals were normal. Given these findings, the ER physician discussed the case with Dr. Iraheta as that I and we will admit him as observation for stress test, monitor on telemetry, and cardiac enzyme cycling. [facility] Medical History Elevated troponin (07/29/19) History of non-ST elevation myocardial infarction (NSTEMI) (07/29/19) Lyme disease Obesity (BMI 30.0-34.9) Paroxysmal supraventricular tachycardia (07/29/19) Syncope (07/29/19) TSH elevation (07/29/19) Upper limb weakness Home Medications omega-3 fatty acids-fish oil 360 mg-1,200 mg capsule (Fish Oil) 2 cap PO DAILY supplement 02/28/22 [History Last Taken 02/27/22] Allergy/AdvReac Type Severity Reaction Status Date / Time bee venom protein (honey bee) Allergy Anaphylaxis Verified 02/28/22 11:16 Family History (Updated 02/28/22 @ 14:[address] Kaci Young DO) Uncle CAD (coronary artery disease) Mother CAD (coronary artery disease) Other Hypertension Surgical History Amputation finger History of left heart catheterization (07/30/19) Social History (Updated 02/28/22 @ 14:[address] Kaci Young DO) household members: spouse housing: house Smoking Status: Never smoker alcohol intake: never substance use type: does not use caffeine: No ROS ROS Narrative At the time of my evaluation patient's review of systems was negative. Symptoms prior to presentation included shortness of breath, chest pain, nausea, diaphoresis, and fizzy feeling. Patient states he also has general joint pain related to arthritis. Constitutional Constitutional: Denies anorexia, change in weight, chills, fatigue, fever(s), malaise, night sweats, weakness or other Eyes Eyes: Denies blurry vision, change in eye color, change in vision, discharge from eye(s), double vision, erythema, eye pain, loss of vision or other ENT HEENT: Denies abnormal hearing, dysphagia, ear pain, epistaxis, headache(s), hearing loss, nasal congestion, nasal discharge, post nasal drip, sinus pressure, sore throat or other Cardiovascular Cardiovascular: Denies chest pain, claudication, dyspnea on exertion, edema, lightheadedness, orthopnea, palpitations, paroxysmal nocturnal dyspnea, rapid heart rate, syncope or other Respiratory/Chest Respiratory/Chest: Denies cough, dyspnea, excessive phlegm production, hemoptysis, productive cough, shortness of breath at rest, shortness of breath with exertion, wheezing or other Gastrointestinal Gastrointestinal: Denies abdominal pain, coffee ground emesis, constipation, diarrhea, dyspepsia, hematemesis, hematochezia, loose stools, melena, nausea, vomiting or other Genitourinary Genitourinary: Denies burning urination, difficulty urinating, dysuria, hematuria, nocturia, urinary frequency, urinary hesitancy, urinary incontinence, urinary urgency or other Musculoskeletal Musculoskeletal: Reports arthralgias, joint pain and joint stiffness; Denies back pain, joint swelling, myalgias, neck pain or other Neurologic Neurologic: Denies abnormal gait, abnormal speech, confusion, disequilibrium, dizziness, focal weakness, headache(s), numbness, paresthesias, seizure-like activity, seizures, syncope, tingling, tremor(s) or other Psychiatric Psychiatric: Denies anxiety, depression, homicidal ideation, suicidal ideation or other Endocrine Endocrinology: Denies change in body appearance, cold intolerance, excessive sweating, heat intolerance, polydipsia, polyuria or other Hematologic/Lymphatic Hematologic/Lymphatic: Denies anemia, easy bleeding, easy bruising, lymphadenopathy or other Allergic/Immunologic Allergic/Immunologic: Denies rhinitis, hives, eczemia, asthma or other Vital Signs Vital Signs Vital Signs: 02/28/22 11:13 02/28/22 11:17 02/28/22 14:00 Temperature 97.6 F L 97.9 F Temperature Source Oral Temporal Pulse Rate 74 74 Respiratory Rate 18 15 Blood Pressure 142/118 H 110/74 Blood Pressure Mean 126 86 Blood Pressure Source Monitor Blood Pressure Position Semi-Fowlers Blood Pressure Location Right Arm Pulse Ox 97 96 Oxygen Delivery Method Room Air Room Air Weight Weight: 98 kg Body Mass Index (BMI) 32.8 Physical Exam Const alert, oriented x3, no apparent distress, healthy appearing and well nourished Constitutional Narrative: Very pleasant, middle-aged, white male, sitting up in bed, appears comfortable, nontoxic, at bedside General Appearance: cooperative HEENT normocephalic, head/scalp atraumatic, hearing grossly normal bilaterally and moist oral mucous membranes HEENT Narrative: Dentition is good, Mallampati is 2, no thrush Eyes PERRL, EOMs intact bilaterally and conjunctivae normal Eyes Narrative: No Neck no lymphadenopathy, supple, no JVD and no carotid bruits Resp normal respiratory effort, no retractions, no use of accessory muscles and clear to auscultation bilaterally Auscultation: Negative for crackles, rhonchi or wheezes Cardio regular rate, regular rhythm, S1 normal heart sound, S2 normal heart sound, no murmurs, no rub, no gallops and no clicks GI normal to inspection, nondistended, normoactive bowel sounds, soft to palpation and non-tender Extremity no clubbing, cyanosis or edema Extremity Narrative: 2+ pulses bilateral radial/bilateral dorsalis pedis Neuro oriented x3, CN's II-XII intact bilaterally, moves all extremities and no focal motor deficits Speech: speech normal Psych affect normal Psych Narrative: Very pleasant and appropriately interactive Results Lab / Micro Data Attestation: I reviewed the patient's lab results. Result Diagrams: 02/28/22 11:17 02/28/22 11:17 Labs: Laboratory Results - last 24 hr 02/28/22 11:17: WBC 9.5, RBC 5.38, Hgb 15.0, Hct 45.0, MCV 83.6, MCH 27.9, MCHC 33.3, RDW Std Deviation 40.6, RDW Coeff of Karma 13.3, Plt Count 243, MPV 10.4, Immature Gran % (Auto) 0.300, Neut % (Auto) 59.9, Lymph % (Auto) 31.6, [place] % (Auto) 6.8, Eos % (Auto) 0.8, Baso % (Auto) 0.6, Absolute Neuts (auto) 5.7, Absolute Lymphs (auto) 3.01, Nucleated RBC % 0 02/28/22 11:17: Sodium 140, Potassium 4.1, Chloride 107, Carbon Dioxide 29.0, Anion Gap 4 L, BUN 14, Creatinine 1.01, Estim Creat Clear Calc 89.36, Est GFR (MDRD) Af Amer 103, Est GFR (MDRD) Non-Af 85, BUN/Creatinine Ratio 13.9, Glucose 105, Calcium 9.1, Troponin I High Sens 402 H* Radiology Impression Chest X-Ray 02/28/22 11:40 IMPRESSION: No acute cardiopulmonary process identified. Electronically Signed: Kalee Baxter MD at 12:11 EST , Assessment & Plan Assessment/Plan (1) Elevated troponin I level: (2) Chest pain: (3) Paroxysmal supraventricular tachycardia: PLAN: Plan Chest pain/troponin elevation -Patient with angiographically normal cardiac catheterization on 07/30/2019 -Anticipate troponin elevation is likely related to his history of paroxysmal SVT -Had an event monitor without any arrhythmia captured however patient had no symptoms during that time -Cycle cardiac enzymes -Nuclear treadmill stress test in a.m. as long as cardiac enzymes do not skyrocket -Check lipids -Start baby aspirin -Restart home metoprolol 25 mg p.o. twice daily -Cardiology consulted-discussed the case with Dr. Iraheta at length and he will see the patient later today History of paroxysmal supraventricular tachycardia -See above -Work-up in progress -Suspect his chest pain and troponin elevation are related to this based on previous data review History of Lyme disease -Was treated with antibiotics -Has resultant chronic arthritis Obesity -BMI 31.0 -Recommend weight loss -Complicates treatment, prognosis, outcomes DVT prophylaxis -Low risk -Mobility CODE STATUS Full code Charges/Coding Visit Charges Inpatient E&M: 18024 Init Hosp L2
[2022-02-28] MEDS: Metoprolol Tartrate 25 MG Tablet PO ×2 (14:31→22:20)
--- NOTE | 2022-02-28 14:40 | PCM.CONS.C ---
Assessment & Plan Assessment/Plan (1) Elevated troponin I level: PLAN: The patient has an elevated high-sensitivity troponin I level. The etiology may be a type II event secondary to his underlying cardiac dysrhythmia creating a supply demand mismatch type event. At the moment he appears to be resting comfortably with no acute symptoms. He will continue his enzyme evaluation. He will continue ECG follow-up. He will be asked to have an echocardiogram to assess his left ventricular wall motion and systolic function. He will be considered for further noninvasive evaluation such as a stress nuclear imaging study, based upon his unremarkable cardiac catheterization from 2019, to evaluate for any obvious changes that would warrant the need for additional evaluation and care. In the interim he will be placed on medical management which includes aspirin and being placed back on his beta-fany. (2) Paroxysmal supraventricular tachycardia: PLAN: The patient states he has a history of PSVT. It appears he has been evaluated for the rhythm in the past. It does not appear a definitive rhythm has been located. At the present time he will be monitored. He will continue his noninvasive evaluation as noted. If no rhythm abnormalities are found then perhaps he needs to be considered for a future implantable loop recorder. (3) Chest pain: PLAN: The patient has had chest discomfort as previously described. This may be related to his cardiac dysrhythmia. At the present time he will continue his noninvasive evaluation. Depending upon his findings he may need to be considered for further evaluation of his cardiac dysrhythmia issue with an implantable loop recorder and depending upon his other noninvasive studies as to whether or not he needs to be reassessed in the cardiac catheterization laboratory. Addt'l Comments The patient's case was discussed with the patient, his spouse, Dr. Coats of the [facility] emergency department, and Dr. Young of the [facility] hospitalist group. Comment: Time spent in the patient's overall evaluation/care/documentation: 45 minutes. HPI Consult Data Date of Consult: 02/28/22 HPI Narrative HPI Narrative: RENEA HAZEL, is a 47 year old Judaism gentleman who presents for cardiovascular consultation based upon concerns of palpitations/rapid heart rate, chest pain, and subsequent findings of abnormal cardiac enzymes/high-sensitivity troponin I level who has been previously evaluated by my colleague Dr. Kamara. He presented to an urgent care center for his aforementioned symptoms. He thought his symptoms were related to a history of SVT diagnosed approximately 2 years ago. He states his symptoms were coupled with chest discomfort which radiates through his chest, to his neck, and to his left shoulder and sometimes feels like a squeezing sensation, nausea, diaphoresis, and a fizzy feeling. He states his symptoms waxed and waned from yesterday into today. He elected to present to the emergency department for further evaluation. He notes by the time he arrived at the Emergency Department he felt his symptoms relieved almost as if someone had turned off the switch . In the emergency department he underwent additional laboratory studies which included high-sensitivity troponin I level. He had an abnormal high-sensitivity troponin I level 402. He brings with him an ECG that was performed on 09-14-2021 at an urgent care center. At that time he had sinus rhythm. There was the appearance of a possible J-point elevation/early repolarization and nonspecific T wave. He has an ECG from yesterday from an urgent care center. It demonstrated similar type findings. His ECG demonstrated sinus tachycardia, PVC, and nonspecific T wave wave changes. In comparison to previous [facility] ECGs from July 2019 there appear to be no significant change compared to previous evaluation. A chest x-ray was performed. He had a portable chest x-ray performed in the emergency department. Based upon review of the chest x-ray it appears to suggest good inspiratory effort with no acute cardiopulmonary disease findings. He had denied ongoing issues of orthopnea or PND. There have been no report of near syncope or syncope. He states that he had been on medical therapy status post his original diagnosis with beta-blockers/metoprolol. However he notes he discontinued his medications himself quite some time ago. He states he was evaluated in [facility] during the past year. He states he underwent multiple evaluations which included an ECG, chest x-ray, and EGD, an MRI study, and other studies that he does not recall. He states he was diagnosed with Lyme disease and autoimmune disease and rheumatoid arthritis. At the time of cardiovascular consultation he appears to be resting comfortably in his room. He denies any ongoing acute symptoms. He has been sitting up and eating without difficulty. [facility] Medical History Elevated troponin (07/29/19) History of non-ST elevation myocardial infarction (NSTEMI) (07/29/19) Lyme disease Obesity (BMI 30.0-34.9) Paroxysmal supraventricular tachycardia (07/29/19) Syncope (07/29/19) TSH elevation (07/29/19) Upper limb weakness Home Medications omega-3 fatty acids-fish oil 360 mg-1,200 mg capsule (Fish Oil) 2 cap PO DAILY supplement 02/28/22 [History Last Taken 02/27/22] Allergy/AdvReac Type Severity Reaction Status Date / Time bee venom protein (honey bee) Allergy Anaphylaxis Verified 02/28/22 11:16 Family History (Updated 02/28/22 @ 14:[address] Kaci Young DO) Uncle CAD (coronary artery disease) Mother CAD (coronary artery disease) Other Hypertension Surgical History Amputation finger History of left heart catheterization (07/30/19) Social History (Updated 02/28/22 @ 14:[address] Kaci Young DO) household members: spouse housing: house Smoking Status: Never smoker alcohol intake: never substance use type: does not use caffeine: No ROS Constitutional Constitutional: Reports as per HPI Eyes Eyes: Reports as per HPI ENT HEENT: Reports as per HPI Cardiovascular Cardiovascular: Reports chest pain, diaphoresis, nausea and palpitations Respiratory/Chest Respiratory/Chest: Reports as per HPI Gastrointestinal Gastrointestinal: Reports nausea Genitourinary Genitourinary: Reports as per HPI Musculoskeletal Musculoskeletal: Reports as per HPI Integumentary Integumentary: Reports as per HPI Neurologic Neurologic: Reports as per HPI Physical Exam Narrative This is an awake, alert, otherwise healthy-appearing 47-year-old Judaism gentleman. Const alert, oriented x3, no apparent distress and healthy appearing Orientation / Consciousness: awake HEENT normocephalic, head/scalp atraumatic and hearing grossly normal bilaterally Eyes PERRL, EOMs intact bilaterally, conjunctivae normal and no scleral icterus Neck full ROM, supple and no JVD Carotids: normal carotid upstroke Resp normal respiratory effort and clear to auscultation bilaterally Cardio regular rate, regular rhythm, S1 normal heart sound and S2 normal heart sound GI normal to inspection, nondistended, normoactive bowel sounds Extremity no pedal edema Skin no rashes or lesions noted Psych mental status grossly normal Risk Stratification Risk Stratification Applicable: Yes Age >/= 65: No >/= 3 CAD Risk Factors (HTN, HLD, DM, family hx of CAD, or current smoker): No Aspirin Use in the Past 7 Days: No Severe Angina (>/= episodes in 24 hours): No EKG ST Changes >/= 0.5mm: No Positive Cardiac Marker: Yes NAOMI Risk Stratification Score: 1 NAOMI % Risk: 5% Risk Procedure Criteria Type of Procedure Procedure Type: Elective Elective Risks - COVID COVID Risk Discussion: The surgeon/proceduralist and patient have discussed in detail the risk of exposure to and/or potential harm posed by the COVID-19 virus with having a surgery/procedure at this time versus the risk of delaying the surgery/procedure. It is not possible to know either the risk of delaying the surgery or procedure or chance of getting an infection with perfect accuracy, but a joint decision was made between the patient and the surgeon/proceduralist to proceed at this time with the scheduled surgery/procedure as indicated on the consent form. Objective Data Vital Signs: Vital Signs Temp Pulse Resp BP Pulse Ox O2 Del Method 97.9 F 74 15 110/74 96 Room Air 02/28/22 14:00 02/28/22 14:31 02/28/22 14:00 02/28/22 14:00 02/28/22 14:00 02/28/22 14:00 Oxygen Delivery Method Room Air Weight: 203 lb 11.314 oz Body Mass Index (BMI) 30.9 Lab / Micro Data Result Diagrams: 02/28/22 11:17 02/28/22 11:17 Labs: Laboratory Results - last 24 hr 02/28/22 11:17: WBC 9.5, RBC 5.38, Hgb 15.0, Hct 45.0, MCV 83.6, MCH 27.9, MCHC 33.3, RDW Std Deviation 40.6, RDW Coeff of Karma 13.3, Plt Count 243, MPV 10.4, Immature Gran % (Auto) 0.300, Neut % (Auto) 59.9, Lymph % (Auto) 31.6, [place] % (Auto) 6.8, Eos % (Auto) 0.8, Baso % (Auto) 0.6, Absolute Neuts (auto) 5.7, Absolute Lymphs (auto) 3.01, Nucleated RBC % 0 02/28/22 11:17: Sodium 140, Potassium 4.1, Chloride 107, Carbon Dioxide 29.0, Anion Gap 4 L, BUN 14, Creatinine 1.01, Estim Creat Clear Calc 89.36, Est GFR (MDRD) Af Amer 103, Est GFR (MDRD) Non-Af 85, BUN/Creatinine Ratio 13.9, Glucose 105, Calcium 9.1, Troponin I High Sens 402 H* Cardiology Labs/Tests 02/28/22 11:17: WBC 9.5, RBC 5.38, Hgb 15.0, Hct 45.0, MCV 83.6, MCH 27.9, MCHC 33.3, Plt Count 243, MPV 10.4, Immature Gran % (Auto) 0.300, Neut % (Auto) 59.9, Lymph % (Auto) 31.6, [place] % (Auto) 6.8, Eos % (Auto) 0.8, Baso % (Auto) 0.6, Absolute Neuts (auto) 5.7, Nucleated RBC % 0 02/28/22 11:17: Sodium 140, Potassium 4.1, Chloride 107, Carbon Dioxide 29.0, Anion Gap 4 L, BUN 14, Creatinine 1.01, Est GFR (MDRD) Af Amer 103, Est GFR (MDRD) Non-Af 85, BUN/Creatinine Ratio 13.9, Glucose 105, Calcium 9.1 Rhythm: Sinus rhythm EKG: As noted above Cardiac Cath: 07-30-2019 CONCLUSIONS Normal coronary arteries Normal LV size, wall motion,and systolic function RECOMMENDATIONS Medical therapy will place event monitor to asses SVT DESCRIPTION OF? PROCEDURE The patient arrived to the procedure lab. The risks and benefits of the procedure as well as a full description of our services here and current unavailability of surgical backup were fully explained to the patient and/or their significant other prior to the catheterization. The Timeout was completed, verifying the correct patient and procedure. The patient's procedural site was prepped and draped in the usual fashion. Local anesthetic was given subcutaneously to right groin region with Lidocaine 2%. Using a modified Seldinger technique, arterial access was obtained via the right femoral artery, a 5Fr sheath was inserted.? Left Coronary Artery selective angiography was performed in multiple views using a 5 Fr. JL4 catheter. Right Coronary Artery selective angiography was then performed in multiple views using a 5 Fr. 3DRC (Ananth) catheter. Left Ventriculography was performed in RILEY projection using a 5 Fr. Pigtail catheter. LV to AO pullback pressures were then recorded.Contrast was injected through the sheath and the Right Iliac and Femoral artery were assessed for possible closure device.The arterial sheath was pulled and a Mynx closure device was deployed for hemostasis CORONARY ANGIOGRAPHY DOMINANCE:? Right Dominant LEFT HEART ASSESSMENT Left Ventricular Ejection Fraction: by LV Gram 60 % Normal LV wall motion Normal Left Ventricular systolic function Normal Left Ventricular systolic function LEFT MAIN: Angiographically normal LEFT ANTERIOR DESCENDING ARTERY: Angiographically normal CIRCUMFLEX ARTERY: Angiographically normal RIGHT CORONARY ARTERY: Angiographically normal Event monitor: 09-01-2019 Sinus rhythm Radiography Diagnostic Testing: Radiology Impression Chest X-Ray 02/28/22 11:40 IMPRESSION: No acute cardiopulmonary process identified. Electronically Signed: Kalee Baxter MD at 12:11 EST ,
--- NOTE | 2022-02-28 16:04 | ECHOD_ITS ---
Reason For Study: ARRYTHMIA Procedure This was a 2D Doppler, Color Flow transthoracic echocardiogram. The exam was of adequate technical quality. Exam performed in department. Left Ventricle Normal LV size. Apical false tendon noted. Left ventricular systolic function is normal. The estimated ejection fraction is 70 %. No evidence for diastolic dysfunction. No regional wall motion abnormalities noted. Right Ventricle Normal RV size. Normal systolic function. Atria Borderline enlarged left atrium. Normal right atrium. No doppler evidence for ASD. Mitral Valve There is no mitral annular calcification. Normal mitral valve. Trivial mitral valve insufficiency. Tricuspid Valve Normal tricuspid valve. Mild eccentric tricuspid valve insufficiency. Right ventricular systolic pressure estimated to be 25 mmHg. Aortic Valve Trisinus/trileaflet aortic valve. Normal aortic valve. Trivial aortic valve insufficiency. Pulmonic Valve Normal pulmonic valve. Trivial pulmonic valve insufficiency. Great Vessels Normal sized aortic root. Pericardium/Pleural No pericardial effusion. MMode/2D Measurements & Calculations LVIDd: 4.7 cm IVSd: 0.99 cm Ao root diam: 3.3 cm LVIDs: 2.9 cm LVPWd: 0.95 cm RVDd: 4.2 cm FS: 38.9 % LAV(MOD-bp): 54.7 ml LVAd ap4: 27.1 cm2 SV(MOD-sp4): 53.9 ml LAV(MOD-bp) Indexed: 26.2 ml/m2 LVLd ap4: 7.9 cm LAV(MOD-sp2): 45.7 ml EDV(MOD-sp4): 74.7 ml LAV(MOD-sp4): 54.4 ml EDV(sp4-el): 78.7 ml LVAs ap4: 12.9 cm2 LVLs ap4: 6.9 cm ESV(MOD-sp4): 20.8 ml ESV(sp4-el): 20.5 ml EF(MOD-sp4): 72.2 % EF(sp4-el): 73.9 % SV(sp4-el): 58.2 ml LA A4 area: 20.8 cm2 LA dimension(2D): 3.8 cm RA A4 area: 21.7 cm2 Time Measurements MV dec time: 0.21 sec Doppler Measurements & Calculations MV E max gabe: 53.9 cm/sec Lat Peak E' Gabe: 8.4 cm/sec Med Peak E' Gabe: 7.4 cm/sec MV A max gabe: 47.1 cm/sec E/E' lat: 6.4 E/E' med: 7.3 MV E/A: 1.1 MV V2 max: 60.2 cm/sec Ao V2 max: 131.4 cm/sec MV max P.5 mmHg MV dec slope: 265.5 cm/sec2 Ao max P.9 mmHg MV V2 mean: 43.6 cm/sec Ao V2 mean: 93.7 cm/sec MV mean P.82 mmHg Ao mean P.0 mmHg MV V2 VTI: 18.8 cm Ao V2 VTI: 26.5 cm LV V1 max: 91.8 cm/sec MR max gabe: 448.1 cm/sec PA V2 max: 111.4 cm/sec LV V1 max P.4 mmHg MR max P.3 mmHg PA V2 mean: 75.0 cm/sec TR max gabe: 236.8 cm/sec TR max P.4 mmHg ECHO/Echo Complete Interpretation Summary Left ventricular systolic function is normal. The estimated ejection fraction is 70 %. Apical false tendon noted. Borderline enlarged left atrium. Trivial mitral valve insufficiency. Mild eccentric tricuspid valve insufficiency. Right ventricular systolic pressure estimated to be 25 mmHg. No evidence for diastolic dysfunction. Ordering Physician: Fredo Iraheta Referring Physician: DALLIN AGARWAL Performed By: Sachi Meadows RCS
[2022-02-28 16:42] LABS: Troponin-I HS 345 pg/mL (3.0-78.0)
--- NOTE | 2022-02-28 16:56 | NURSING ---
primary rn notified of critical troponin
[2022-02-28 17:43] LABS: Troponin-I HS 319 pg/mL (3.0-78.0)
[2022-02-28 22:07] LABS: Troponin-I HS 234 pg/mL (3.0-78.0)
[2022-03-01] VITALS (7 sets, daily range): BP systolic 112–119; BP diastolic 66–77; PULSE 71–81; RESP 16–18; TEMP 36.5–36.8; O2SAT 94–98
[2022-03-01 06:09] LABS: Absolute Lymphocyte Count 2.29 X10^3/uL (0.83-4.51); Absolute Neutrophil Count 2.1 X10^3/uL (2.0-7.7); Basophil# 0.05 X10^3/uL; Eosinophil# 0.21 X10^3/uL; Eosinophils% 4.1 % (0-5); Hematocrit 47.5 % (40-54); Hemoglobin 15.9 g/dL (13.0-16.5); Lymphocyte # 2.29 X10^3/ul (0.83-4.51); Lymphocyte % 44.8 % (19-41); Mean Corp Hgb Conc 33.5 g/dL (32-36); Mean Corpuscular Hgb 28.3 pg (27.0-32.0); Mean Corpuscular Volume 84.7 fL (80-94); Mean Platelet Vol. 9.9 fl (6.2-12.0); Monocyte# 0.44 X10^3/uL; Monocyte% 8.6 % (0-10); NRBC Flagged by Analyzer 0 % (0-5); Neutrophil # 2.12 X10^3/uL (2.7-7.7); Neutrophil % 41.5 % (47-70); Platelet Count 192 K/mm3 (150-450); RBC Distribution Width CV 13.2 % (11.6-14.6); RBC Distribution Width SD 41.1 fl (35.1-43.9); Red Blood Count 5.61 M/mm3 (4.6-6.2); White Blood Count 5.1 K/mm3 (4.4-11.0)
[2022-03-01 06:52] LABS: Anion Gap 1 (5-15); BUN 19 mg/dL (7-18); BUN/Creat Ratio 18.4 RATIO (10-20); Calcium,Total 8.9 mg/dL (8.5-10.1); Chloride 107 mmol/L (98-107); Cholesterol 236 mg/dL (200); Creatinine, Serum 1.03 mg/dL (0.70-1.30); EST Glomerular Filtration Rate 83 mL/min (>60); Est Glom Filt Rate - Afr Amer 100 mL/min (>60); Estimated Creatinine Clearance 87.62 ml/min; Glucose 114 mg/dL (74-106); High Density Lipoprotein 32 mg/dL; Magnesium 2.3 mg/dL (1.6-2.6); Phosphorus 3.2 mg/dL (2.5-4.9); Potassium 4.2 mmol/L (3.5-5.1); Sodium Level 139 mmol/L (136-145); Thyroid Stim Hormone (TSH) 1.57 uIU/mL (0.358-3.74); Triglycerides 456 mg/dL
--- NOTE | 2022-03-01 09:26 | STRESSREP_ITS ---
Stress Test Report Date: 03-01-2022 Procedure: Exercise tolerance test/imaging study Indications: Palpitations, chest pain, abnormal cardiac enzymes Consent: Per the patient Procedure: The patient exercised on a Naseem protocol for 10 minutes and 30 seconds completing Stage III and 1 minute and 30 seconds of Stage IV achieving a peak heart rate of 162 bpm (92% predicted maximal heart rate) with resting blood pressure of 116/80 mmHg and a peak blood pressure 154/78 mmHg and a peak MET capacity of 13 METs. The baseline ECG demonstrated normal sinus rhythm; T wave abnormality. The peak exercise ECG demonstrated somatic/motion artifact but no obvious ECG/ST segment changes. There was a rare PVC during exercise and recovery. The functional capacity was considered good. There was no complaint of chest discomfort during exercise or recovery. The examination was discontinued secondary to dyspnea. Impression: 1. Technically adequate (percent predicted maximal heart rate greater than 85%) exercise tolerance test 2. Peak exercise ECG with somatic/motion artifact with no obvious ECG/ST segment changes 3. There was a rare PVC during exercise and recovery 4. Nuclear images pending Myocardial perfusion imaging study: Technique: The patient was injected with 14.5 mCi of technetium 99m Cardiolite and subsequently rest SPECT Cardiolite nuclear imaging was obtained in the horizontal long, vertical long, and short axis views. The patient exercised on a Naseem protocol for 10 minutes and 30 seconds completing Stage III and 1 minute and 30 seconds of Stage IV achieving a peak heart rate of 162 bpm (92% predicted maximal heart rate) with resting blood pressure of 116/80 mmHg and a peak blood pressure 154/78 mmHg and a peak MET capacity of 13 METs. The patient was injected with 44.2 mCi of technetium 99m Cardiolite and subsequently stress SPECT Cardiolite nuclear imaging was obtained in the horizontal long, vertical long, and short axis views. A gated Cardiolite study at peak stress was obtained. Interpretation: Rest and stress SPECT Cardiolite nuclear imaging status post realignment, normalization, and attenuation correction, demonstrates the appearance of relative uniform tracer uptake and myocardial perfusion appearing within normal limits. There is end systolic thickening and brightening. The gated Cardiolite study demonstrates myocardial thickening and inward wall motion. The reported LVEF is 76%. Impression: 1. Rest and stress SPECT Cardiolite nuclear imaging demonstrate relative uniform tracer uptake and myocardial perfusion appearing within normal limits. 2. The gated Cardiolite study reports an LVEF of 76%. This note was generated with Kont[employer] software. It may contain incorrect words, spelling, and punctuation that were not noted in checking the note before signing.
--- NOTE | 2022-03-01 09:44 | NURSING ---
This RN in the room and pt sitting in chair, looks like he just got out of the shower. Pt states he was in the shower. Pt just recently got back from Stress test. Pt also asked if he could go to cafeteria to get coffee. Explained reason he could not. Pt knows he is on clear liquid diet until results of stress test come back.
[2022-03-01] MEDS: Metoprolol Tartrate 25 MG Tablet PO (12:50)
--- NOTE | 2022-03-01 12:55 | PCM.DC ---
Discharge Instructions Diet Discharge Diet: Low fat / Low cholesterol and 2000 mg Sodium Diet Activity Discharge Activity: Return to Normal Activity Follow Up Care Test Results: Test results from this visit will be discussed in further detail at your follow-up appointment, if applicable. Discharge Plan Admission Admit Date/Time: 02/28/22 13:18 Primary Reason for Your Visit: Chest pain, elevated troponin, paroxysmal SVT Attending Provider: Ruby Celaya Primary Care Provider: Dyan Ríos NP Consulting Providers: Fredo Iraheta ; Kaci Young Instructions Additional Instructions / Restrictions: Take note of changes to your medications. Follow a low-salt, low-fat diet Follow-up with your primary care doctor within 1 week Follow-up with cardiology within 1 month You are being discharged with a heart monitor Discharge Orders/Prescriptions Prescriptions: New aspirin 81 mg Tablet,Chewable 81 mg PO BREAKFAST 30 Days Qty: 30 0RF metoprolol tartrate 25 mg Tablet 25 mg PO BID 30 Days Qty: 60 0RF atorvastatin 80 mg tablet 80 mg PO QHS 30 Days Qty: 30 0RF Continued omega-3 fatty acids-fish oil [Fish Oil] 360-1,200 mg Capsule 2 cap PO DAILY Other Ambulatory Orders: 30 Day Event Recorder Preventi (Urgent) Timeframe: 1 Day Facility: [facility] - Location: Cardiovascular Services Ordered By: Dr. Ruby Celaya Referrals / Follow Up: Niles Kamara MD [Med Staff - Active Staff] - Within 1 Month Dyan Ríos NP, METAL PICKLING EQUIPMENT OPERATOR-C [Primary Care Provider] - In 1 Week Disposition Disposition (needs filled in before D/C Order can be placed): Home, Self Care
--- NOTE | 2022-03-01 13:05 | CASEMGMT ---
RN CM NOTE: Pt being discharged. Per Dr Celaya, she would like nutrition c/s done prior to pt discharging. Call placed to [facility] in dietary and she was made aware. Max JORDAN RN CM
--- NOTE | 2022-03-01 13:09 | PCM.DC.SUM ---
Providers Date of Admission: 02/28/22 Date of Discharge: 03/01/22 Primary Care Physician: WILEY Scott Consultations 02/28/22 13:54 Consult: Cardiology Routine Consulting Provider: Fredo Iraheta Reason for Consult: troponin elevation EMERGENT Consult: No MD Notified: Yes Date Notified: 02/28/22 Time Notified: 13:31 Method of Notification: Verbal Reason For Visit: SVT/TROPONIN ELEVATION Diagnosis Discharge Diagnosis (1) Elevated troponin I level: Status: Acute Code(s): R77.8 - Other specified abnormalities of plasma proteins (2) Paroxysmal supraventricular tachycardia: Status: Chronic Code(s): I47.1 - Supraventricular tachycardia (3) Chest pain: Status: Acute Code(s): R07.9 - Chest pain, unspecified Medications at Discharge Home Medications omega-3 fatty acids-fish oil 360 mg-1,200 mg capsule (Fish Oil) 2 cap PO DAILY supplement 02/28/22 aspirin 81 mg chewable tablet 81 mg PO BREAKFAST 30 days #30 tabs 03/01/22 atorvastatin 80 mg tablet 80 mg PO QHS 30 days #30 tabs 03/01/22 metoprolol tartrate 25 mg tablet 25 mg PO BID 30 days #60 tabs 03/01/22 Hospital Course Operations None Procedures 2-D Echocardiogram Summary of Care Provided Minutes Spent on Discharge: 35 Hospital Course: 47-year-old male with past medical history of paroxysmal SVTs who comes in with complaints of chest discomfort and feeling fizzy. Patient said that he has had symptoms like this and was believed to be related to SVTs. He had previously been worked out with the event monitor that did not capture anything. In the emergency room, his EKG shows sinus tachycardia regular occasional PVCs. Patient had elevation in his troponin: 345-->319-->234. He was admitted to medical floor and monitored on telemetry. There were no acute events. Cardiology was recommended stress test and echo. Stress test was unremarkable. 2D echo showed EF of 70%, no other abnormality. His triglycerides were 456, total cholesterol was 236, LDL was too numerous to be counted, HDL 32. He was strongly advised to follow a low-fat diet, he was prescribed atorvastatin 80 mg p.o. daily. He was resumed back on his metoprolol and discharged with a 30-day event monitor again. Patient will need to follow-up with his primary care doctor and also with cardiology. Physical Exam Narrative Physical exam: General: Alert, Oriented x3, Cooperative HEENT: Atraumatic Oral: Moist Mucosa Neck: Supple Lungs: Clear to auscultation Cardiovascular: HS I+II, regular, no murmurs Abdomen: Bowel Sounds Present, Soft, Non Tender Extremities: No edema Skin: No rashes, No breakdown Neurological: Grossly intact Psych/Mental Status: Appropriate Weight / BMI Weight Weight: 92.4 kg Body Mass Index (BMI) 30.9 ABG / Lab / Microbiology Data Result Diagrams: 03/01/22 05:46 03/01/22 05:46 Laboratory: Laboratory Results - last 24 hr 02/28/22 15:54: Troponin I High Sens 345 H* 02/28/22 17:15: Troponin I High Sens 319 H* 02/28/22 21:25: Troponin I High Sens 234 H* 03/01/22 05:46: WBC 5.1, RBC 5.61, Hgb 15.9, Hct 47.5, MCV 84.7, MCH 28.3, MCHC 33.5, RDW Std Deviation 41.1, RDW Coeff of Karma 13.2, Plt Count 192, MPV 9.9, Immature Gran % (Auto) 0.000, Neut % (Auto) 41.5 L, Lymph % (Auto) 44.8 H, [place] % (Auto) 8.6, Eos % (Auto) 4.1, Baso % (Auto) 1.0, Absolute Neuts (auto) 2.1, Absolute Lymphs (auto) 2.29, Nucleated RBC % 0 03/01/22 05:46: Sodium 139, Potassium 4.2, Chloride 107, Carbon Dioxide 31.0, Anion Gap 1 L, BUN 19 H, Creatinine 1.03, Estim Creat Clear Calc 87.62, Est GFR (MDRD) Af Amer 100, Est GFR (MDRD) Non-Af 83, BUN/Creatinine Ratio 18.4, Glucose 114 H, Calcium 8.9, Phosphorus 3.2, Magnesium 2.3, Triglycerides 456 H, Cholesterol 236 H, LDL Cholesterol TNP, VLDL Cholesterol TNP, HDL Cholesterol 32 L, TSH 1.57 D/C Instructions Discharge Diet: Low fat / Low cholesterol and 2000 mg Sodium Diet Meaningful Use Info Meaningful Use Diagnoses (Choose all that apply): None applicable Discharge Plan Admission Admit Date/Time: 02/28/22 13:18 Primary Reason for Your Visit: Chest pain, elevated troponin, paroxysmal SVT Attending Provider: Ruby Celaya Primary Care Provider: Dyan Ríos NP Consulting Providers: Fredo Iraheta ; Kaci Young Instructions Additional Instructions / Restrictions: Take note of changes to your medications. Follow a low-salt, low-fat diet Follow-up with your primary care doctor within 1 week Follow-up with cardiology within 1 month You are being discharged with a heart monitor Discharge Orders/Prescriptions Prescriptions: New aspirin 81 mg Tablet,Chewable 81 mg PO BREAKFAST 30 Days Qty: 30 0RF metoprolol tartrate 25 mg Tablet 25 mg PO BID 30 Days Qty: 60 0RF atorvastatin 80 mg tablet 80 mg PO QHS 30 Days Qty: 30 0RF Continued omega-3 fatty acids-fish oil [Fish Oil] 360-1,200 mg Capsule 2 cap PO DAILY Other Ambulatory Orders: 30 Day Event Recorder Preventi (Urgent) Timeframe: 1 Day Facility: [facility] - Location: Cardiovascular Services Ordered By: Dr. Ruby Celaya Referrals / Follow Up: Niles Kamara MD [Med Staff - Active Staff] - Within 1 Month Dyan Ríos NP, OFFENDER EMPLOYMENT SPECIALIST-C [Primary Care Provider] - In 1 Week Disposition Disposition (needs filled in before D/C Order can be placed): Home, Self Care Charges/Coding Visit Charges Inpatient E&M: 67165 Disch Hosp >30min
--- NOTE | 2022-03-01 14:15 | PN.CARD_ITS ---
Subjective Subjective The patient is awake and alert. He denies any ongoing palpitations/rapid heart rate or chest discomfort. He has undergone noninvasive valuation this day as noted below. Objective Data Vital Signs: Vital Signs Temp Pulse Resp BP Pulse Ox O2 Del Method 97.7 F L 77 16 119/69 95 Room Air 03/01/22 09:49 03/01/22 12:50 03/01/22 09:49 03/01/22 09:49 03/01/22 09:49 03/01/22 09:49 Oxygen Delivery Method Room Air Weight: 203 lb 11.314 oz Body Mass Index (BMI) 30.9 Lab / Micro Data Result Diagrams: 03/01/22 05:46 03/01/22 05:46 Labs: Laboratory Results - last 24 hr 02/28/22 15:54: Troponin I High Sens 345 H* 02/28/22 17:15: Troponin I High Sens 319 H* 02/28/22 21:25: Troponin I High Sens 234 H* 03/01/22 05:46: WBC 5.1, RBC 5.61, Hgb 15.9, Hct 47.5, MCV 84.7, MCH 28.3, MCHC 33.5, RDW Std Deviation 41.1, RDW Coeff of Karma 13.2, Plt Count 192, MPV 9.9, Immature Gran % (Auto) 0.000, Neut % (Auto) 41.5 L, Lymph % (Auto) 44.8 H, [place] % (Auto) 8.6, Eos % (Auto) 4.1, Baso % (Auto) 1.0, Absolute Neuts (auto) 2.1, Absolute Lymphs (auto) 2.29, Nucleated RBC % 0 03/01/22 05:46: Sodium 139, Potassium 4.2, Chloride 107, Carbon Dioxide 31.0, Anion Gap 1 L, BUN 19 H, Creatinine 1.03, Estim Creat Clear Calc 87.62, Est GFR (MDRD) Af Amer 100, Est GFR (MDRD) Non-Af 83, BUN/Creatinine Ratio 18.4, Glucose 114 H, Calcium 8.9, Phosphorus 3.2, Magnesium 2.3, Triglycerides 456 H, Cholesterol 236 H, LDL Cholesterol TNP, VLDL Cholesterol TNP, HDL Cholesterol 32 L, TSH 1.57 Cardiology Labs/Tests 03/01/22 05:46: WBC 5.1, RBC 5.61, Hgb 15.9, Hct 47.5, MCV 84.7, MCH 28.3, MCHC 33.5, Plt Count 192, MPV 9.9, Immature Gran % (Auto) 0.000, Neut % (Auto) 41.5 L , Lymph % (Auto) 44.8 H, [place] % (Auto) 8.6, Eos % (Auto) 4.1, Baso % (Auto) 1.0, Absolute Neuts (auto) 2.1, Nucleated RBC % 0 03/01/22 05:46: Sodium 139, Potassium 4.2, Chloride 107, Carbon Dioxide 31.0, Anion Gap 1 L, BUN 19 H, Creatinine 1.03, Est GFR (MDRD) Af Amer 100, Est GFR (MDRD) Non-Af 83, BUN/Creatinine Ratio 18.4, Glucose 114 H, Calcium 8.9, Phosphorus 3.2, Magnesium 2.3, Triglycerides 456 H, Cholesterol 236 H, LDL Cholesterol TNP, VLDL Cholesterol TNP, HDL Cholesterol 32 L Rhythm: Sinus rhythm ECHO: Normal LV systolic function: Estimated LVEF of 70% Stress Test Report Date: 03-01-2022 Procedure: Exercise tolerance test/imaging study Indications: Palpitations, chest pain, abnormal cardiac enzymes Consent: Per the patient Procedure: The patient exercised on a Naseem protocol for 10 minutes and 30 seconds completing Stage III and 1 minute and 30 seconds of Stage IV achieving a peak heart rate of 162 bpm (92% predicted maximal heart rate) with resting blood pressure of 116/80 mmHg and a peak blood pressure 154/78 mmHg and a peak MET capacity of 13 METs. The baseline ECG demonstrated normal sinus rhythm; T wave abnormality.? The peak exercise ECG demonstrated somatic/motion artifact but no obvious ECG/ST segment changes. There was a rare PVC during exercise and recovery.? The functional capacity was considered good. There was no complaint of chest discomfort during exercise or recovery. The examination was discontinued secondary to dyspnea. Impression: 1.? Technically adequate (percent predicted maximal heart rate greater than 85%) exercise tolerance test 2.? Peak exercise ECG with somatic/motion artifact with no obvious ECG/ST segment changes 3.? There was a rare PVC during exercise and recovery 4.? Nuclear images pending Myocardial perfusion imaging study: Technique: The patient was injected with 14.5 mCi of technetium 99m Cardiolite and subsequently rest SPECT Cardiolite nuclear imaging was obtained in the horizontal long, vertical long, and short axis views. The patient exercised on a Naseem protocol for 10 minutes and 30 seconds completing Stage III and 1 minute and 30 seconds of Stage IV achieving a peak heart rate of 162 bpm (92% predicted maximal heart rate) with resting blood pressure of 116/80 mmHg and a peak blood pressure 154/78 mmHg and a peak MET capacity of 13 METs. The patient was injected with 44.2 mCi of technetium 99m Cardiolite and subsequently stress SPECT Cardiolite nuclear imaging was obtained in the horizontal long, vertical long, and short axis views.? A gated Cardiolite study at peak stress was obtained. Interpretation: Rest and stress SPECT Cardiolite nuclear imaging status post realignment, normalization, and attenuation correction, demonstrates the appearance of relative uniform tracer uptake and myocardial perfusion appearing within normal limits.? There is end systolic thickening and brightening.? The gated Cardiolite study demonstrates myocardial thickening and inward wall motion.? The reported LVEF is 76%. Impression: 1.? Rest and stress SPECT Cardiolite nuclear imaging demonstrate relative unif orm tracer uptake and myocardial perfusion appearing within normal limits. 2.? The gated Cardiolite study reports an LVEF of 76%. Physical Exam Narrative This is an awake, alert, otherwise healthy-appearing 47-year-old [facility] gentleman. Const alert, oriented x3, no apparent distress and healthy appearing Orientation / Consciousness: awake HEENT normocephalic, head/scalp atraumatic and hearing grossly normal bilaterally Eyes PERRL, EOMs intact bilaterally, conjunctivae normal and no scleral icterus Neck full ROM, supple and no JVD Carotids: normal carotid upstroke Resp normal respiratory effort and clear to auscultation bilaterally Cardio regular rate, regular rhythm, S1 normal heart sound and S2 normal heart sound GI normal to inspection, nondistended, normoactive bowel sounds Extremity no pedal edema Skin no rashes or lesions noted Psych mental status grossly normal Assessment & Plan Assessment/Plan (1) Elevated troponin I level: PLAN: The patient has an elevated high-sensitivity troponin I level. At the present time it appears his abnormal cardiac enzymes are related to a type II event brought out by an underlying cardiac dysrhythmia-yet identified leading to a supply demand mismatch event. He has undergone noninvasive valuation as noted. There was no evidence of left ventricular systolic dysfunction or evidence of ongoing myocardial ischemia. At the present time he should continue medical therapy which would include aspi rin therapy and his beta-fany therapy (2) Paroxysmal supraventricular tachycardia: PLAN: The patient states he has a history of PSVT. It appears he has been evaluated for the rhythm in the past. It does not appear a definitive rhythm has been located. Thus far there is been no cardiac dysrhythmias detected. He will be asked to wear a 30-day ambulatory event monitor. If he has no cardiac dysrhythmias detected then he may need to be recommended for an implantable loop recorder. (3) Chest pain: PLAN: The patient has had chest discomfort as previously described. Based upon the results of his noninvasive studies it appears his chest disco mfort is related to an underlying cardiac dysrhythmia-as noted above yet identified. He will continue noninvasive valuation care as noted. Addt'l Comments The above was discussed with the patient with his spouse present. Comment: Spent in the patient's evaluation, care, and documentation: 37 minutes. Procedure Criteria Type of Procedure Procedure Type: Elective Elective Risks - COVID COVID Risk Discussion: The surgeon/proceduralist and patient have discussed in detail the risk of exposure to and/or potential harm posed by the COVID-19 virus with having a surgery/procedure at this time versus the risk of delaying the surgery/procedure. It is not possible to know either the risk of delaying the surgery or procedure or chance of getting an infection with perfect accuracy, but a joint decision was made between the patient and the surgeon/proceduralist to proceed at this time with the scheduled surgery/procedure as indicated on the consent form.
== END 2022-03-01 14:33 | disposition home or self-care (01) ==
LOC: ED 13:36 → MS2 13:38
PROVIDERS: Admitting Provider Internal Medicine; Emergency Provider Emergency Medicine; PCP Nurse Practitioner Family; Visit Provider Internal Medicine
DX: R77.8 Other specified abnormalities of plasma proteins (principal); I47.1 Supraventricular tachycardia; R07.89 Other chest pain; Z68.32 Body mass index [BMI] 32.0-32.9, adult; I49.3 Ventricular premature depolarization; R06.02 Shortness of breath; R00.2 Palpitations; E66.9 Obesity, unspecified; I25.2 Old myocardial infarction; Z82.49 Family history of ischemic heart disease and other diseases of the circulatory system
CPT/HCPCS: 36415; 71045; 78452; 80048; 80061; 83735; 84100; 84443; 84484; 85025; 93005; 93017; 93306; 97802; 99221; 99252; 99283; A9500; A4216; G0378; G0463

== ENCOUNTER 2024-07-29 10:55 | Emergency (ER) | payer OTHER, SELFPAY ==
[2024-07-29] VITALS (12 sets, daily range): BP systolic 74–128; BP diastolic 64–84; PULSE 77–182; RESP 16–22; TEMP 37; O2SAT 96–100; BMI 30.7
--- NOTE | 2024-07-29 11:18 | EKG12_ITS ---
Test Reason : CP Blood Pressure : */* mmHG Vent. Rate : 187 BPM Atrial Rate : * BPM P-R Int : * ms QRS Dur : 126 ms QT Int : 264 ms P-R-T Axes : * 267 33 degrees QTcB Int : 465 ms Critical Test Result: High HR Wide Complex Tachycardia, possible VT Right bundle branch block Abnormal ECG Confirmed by Ciro Hamm [id number]), society editor KATIE DIAZ ([id number]) on 07/30/2024 9:50:57 AM Referred By: Confirmed By: Ciro Hamm
[2024-07-29] MEDS: Adenosine 6 MG/2 ML Syringe IV (11:25)
[2024-07-29 11:26] LABS: Absolute Lymphocyte Count 4.34 X10^3/uL (0.83-4.51); Absolute Neutrophil Count 7.4 X10^3/uL (2.0-7.7); Basophil# 0.08 X10^3/uL; Basophil% 0.6 % (0-1); Eosinophil# 0.11 X10^3/uL; Eosinophils% 0.9 % (0-5); Hematocrit 49.7 % (40-54); Hemoglobin 16.2 g/dL (13.0-16.5); Lymphocyte # 4.34 X10^3/ul (0.83-4.51); Lymphocyte % 33.8 % (19-41); Mean Corp Hgb Conc 32.6 g/dL (32-36); Mean Corpuscular Hgb 26.7 pg (27.0-32.0); Mean Corpuscular Volume 81.9 fL (80-94); Mean Platelet Vol. 10.7 fl (6.2-12.0); Monocyte# 0.89 X10^3/uL; Monocyte% 6.9 % (0-10); NRBC Flagged by Analyzer 0 % (0-5); Neutrophil % 57.6 % (47-70); Platelet Count 295 K/mm3 (150-450); RBC Distribution Width CV 14.6 % (11.6-14.6); RBC Distribution Width SD 43.9 fl (35.1-43.9); Red Blood Count 6.07 M/mm3 (4.6-6.2); White Blood Count 12.8 K/mm3 (4.4-11.0)
[2024-07-29] MEDS: Adenosine 6 MG/2 ML Syringe 12 MG IV (11:37)
[2024-07-29] MEDS: Etomidate 20 MG/10 ML Vial 13 MG IV (11:53)
--- NOTE | 2024-07-29 11:59 | EKG12_ITS ---
Test Reason : REPEAT Blood Pressure : */* mmHG Vent. Rate : 87 BPM Atrial Rate : 87 BPM P-R Int : 172 ms QRS Dur : 90 ms QT Int : 346 ms P-R-T Axes : 52 -6 -51 degrees QTcB Int : 416 ms Normal sinus rhythm ST & T wave abnormality, consider inferior ischemia ST & T wave abnormality, consider anterolateral ischemia Abnormal ECG Confirmed by Ciro Hamm [id number]), associate editor KATIE DIAZ ([id number]) on 07/30/2024 9:50:10 AM Referred By: Confirmed By: Ciro Hamm
[2024-07-29 12:06] LABS: Anion Gap 11 (5-15); BUN 17 mg/dL (4-19); BUN/Creat Ratio 13.8 RATIO (10-20); Calcium,Total 9.4 mg/dL (7.6-11.0); Carbon Dioxide 23.1 mmol/L (21.0-32.0); Chloride 105 mmol/L (98-108); EST Glomerular Filtration Rate 75 (>60); Estimated Creatinine Clearance 83.61 ml/min (50-250); Glucose 124 mg/dL (70-99); Magnesium 2.3 mg/dL (1.5-2.2); Potassium 4.4 mmol/L (3.3-5.1); Sodium Level 139 mmol/L (133-145)
--- NOTE | 2024-07-29 12:15 | RAD_ITS ---
EXAM: XR Chest, 1 View CLINICAL INDICATION: CHEST PAIN TECHNIQUE: Frontal view of the chest. COMPARISON: No relevant prior studies available. FINDINGS: LUNGS AND PLEURAL SPACES: Unremarkable. No consolidation. No pneumothorax. HEART: Unremarkable. No cardiomegaly. MEDIASTINUM: Unremarkable. Normal mediastinal contour. BONES/JOINTS: Unremarkable. No acute fracture. RAD/Chest 1 View (Portable) IMPRESSION: No acute cardiopulmonary process. Reading Location: [facility]
[2024-07-29 12:18] LABS: Troponin T High Sensitivity 178 ng/L (<=22)
--- NOTE | 2024-07-29 15:10 | ED.VIS.CHEST ---
HPI History of Present Illness Chief Complaint: Chest Pain Informant: patient and spouse/S.O. Narrative Narrative: 49-year-old male presenting to the emergency room with fast heart rate. Patient states that through the years she has had intermittent episodes that he has not been able to get diagnosis they typically terminate by time he gets the hospital. He states he is seeing cardiology as an outpatient and has seen physicians in [facility]. He is not currently on any antiarrhythmics. He states that yesterday he felt his heart going to this rhythm and it has not resolved. He notes some chest discomfort and generalized fatigue. [facility] Medical History Rheumatoid arthritis Hypercholesteremia Lyme disease Upper limb weakness TSH elevation (07/29/19) Obesity (BMI 30.0-34.9) History of non-ST elevation myocardial infarction (NSTEMI) (07/29/19) Syncope (07/29/19) Paroxysmal supraventricular tachycardia (07/29/19) Elevated troponin (07/29/19) Home Medications ?Medication ?Instructions ?Recorded ?Last Taken ?Type metoprolol tartrate 25 mg tablet 25 mg PO BID #60 tabs 07/29/24 Unknown Rx Allergy/AdvReac Type Severity Reaction Status Date / Time bee venom protein (honey bee) Allergy Anaphylaxis Verified 07/29/24 10:58 Family History Uncle CAD (coronary artery disease) Mother CAD (coronary artery disease) Other Hypertension Surgical History Amputation finger History of left heart catheterization (07/30/19) Social History household members: spouse housing: house Smoking Status: Never smoker alcohol intake: never substance use type: does not use caffeine: No ROS ROS ED Constitutional Constitutional ED: Denies chills, fever(s) or weight loss Eyes Eyes: Denies change in vision or diplopia ENT ENT ED: Denies ear pain, rhinorrhea or sore throat Cardiovascular Cardiovascular: Reports as per HPI, chest pain and racing heartbeat; Denies orthopnea or palpitations Respiratory/Chest Respiratory/Chest: Denies cough, dyspnea or orthopnea Gastrointestinal Gastrointestinal: Denies abdominal pain, diarrhea, nausea or vomiting Genitourinary Genitourinary ED: Denies dysuria, hematuria or urinary frequency Musculoskeletal Musculoskeletal: Denies arthralgias or myalgias Integumentary Denies abscess or rash Neurologic Neurologic: Denies headache(s) or weakness Psychiatric Psychiatric: Denies anxiety, depression, suicidal ideation or suicidal thoughts Endocrine Endocrinology: Denies polydipsia, polyphagia or polyuria Allergic/Immunologic Allergic/Immunologic ED: Denies mouth swelling, tongue swelling or urticaria EXAM Physical Exam Const Vital Signs: 07/29/24 10:56 07/29/24 11:25 07/29/24 11:39 Temperature 98.6 F Temperature Source Oral Pulse Rate 182 H 148 H 151 H Pulse Rate [1 (Initial Baseline)] Pulse Rate [2] Respiratory Rate 20 H 18 16 Respiratory Rate [1 (Initial Baseline)] Respiratory Rate [2] Blood Pressure 96/69 92/73 74/64 L Blood Pressure [1 (Initial Baseline)] Blood Pressure [2] Blood Pressure Mean 78 79 67 Baseline BP Pulse Ox 100 96 100 Oxygen Delivery Method Room Air Room Air Nasal Cannula Oxygen Delivery Method [1 (Initial Baseline)] Oxygen Delivery Method [2] Oxygen Flow Rate (L/min) 2 Oxygen Flow Rate (L/min) [1 (Initial Baseline)] Oxygen Flow Rate (L/min) [2] EtCo2 - Document during CPR and with ROSC EtCo2 - Document during CPR and with ROSC [1 (Initial Baseline)] EtCo2 - Document during CPR and with ROSC [2] 07/29/24 11:42 07/29/24 11:45 07/29/24 11:55 Temperature 98.6 F Temperature Source Pulse Rate 150 H Pulse Rate [1 (Initial Baseline)] 156 H Pulse Rate [2] 87 Respiratory Rate 16 Respiratory Rate [1 (Initial Baseline)] 22 H Respiratory Rate [2] 22 H Blood Pressure 87/66 L Blood Pressure [1 (Initial Baseline)] 100/84 H Blood Pressure [2] 128/84 H Blood Pressure Mean Baseline BP 87/66 Pulse Ox 100 Oxygen Delivery Method Nasal Cannula Oxygen Delivery Method [1 (Initial Baseline)] Nasal Cannula Oxygen Delivery Method [2] Nasal Cannula Oxygen Flow Rate (L/min) 2 Oxygen Flow Rate (L/min) [1 (Initial Baseline)] 2 Oxygen Flow Rate (L/min) [2] 2 EtCo2 - Document during CPR and with ROSC 27 EtCo2 - Document during CPR and with ROSC [1 (Initial Baseline)] 29 EtCo2 - Document during CPR and with ROSC [2] 30 07/29/24 12:00 07/29/24 12:04 07/29/24 12:05 Temperature Temperature Source Pulse Rate 87 86 82 Pulse Rate [1 (Initial Baseline)] Pulse Rate [2] Respiratory Rate 22 H 22 H 18 Respiratory Rate [1 (Initial Baseline)] Respiratory Rate [2] Blood Pressure 112/80 112/80 112/64 Blood Pressure [1 (Initial Baseline)] Blood Pressure [2] Blood Pressure Mean 90 Baseline BP Pulse Ox 100 100 100 Oxygen Delivery Method Nasal Cannula Nasal Cannula Room Air Oxygen Delivery Method [1 (Initial Baseline)] Oxygen Delivery Method [2] Oxygen Flow Rate (L/min) 2 2 Oxygen Flow Rate (L/min) [1 (Initial Baseline)] Oxygen Flow Rate (L/min) [2] EtCo2 - Document during CPR and with ROSC 31 30 EtCo2 - Document during CPR and with ROSC [1 (Initial Baseline)] EtCo2 - Document during CPR and with ROSC [2] 07/29/24 12:10 07/29/24 12:44 07/29/24 13:07 Temperature Temperature Source Pulse Rate 86 84 77 Pulse Rate [1 (Initial Baseline)] Pulse Rate [2] Respiratory Rate 20 H 18 18 Respiratory Rate [1 (Initial Baseline)] Respiratory Rate [2] Blood Pressure 103/79 103/80 105/73 Blood Pressure [1 (Initial Baseline)] Blood Pressure [2] Blood Pressure Mean 87 83 Baseline BP Pulse Ox 98 100 99 Oxygen Delivery Method Room Air Room Air Room Air Oxygen Delivery Method [1 (Initial Baseline)] Oxygen Delivery Method [2] Oxygen Flow Rate (L/min) Oxygen Flow Rate (L/min) [1 (Initial Baseline)] Oxygen Flow Rate (L/min) [2] EtCo2 - Document during CPR and with ROSC 30 EtCo2 - Document during CPR and with ROSC [1 (Initial Baseline)] EtCo2 - Document during CPR and with ROSC [2] 07/29/24 13:28 Temperature 98.6 F Temperature Source Pulse Rate 83 Pulse Rate [1 (Initial Baseline)] Pulse Rate [2] Respiratory Rate 20 H Respiratory Rate [1 (Initial Baseline)] Respiratory Rate [2] Blood Pressure 103/75 Blood Pressure [1 (Initial Baseline)] Blood Pressure [2] Blood Pressure Mean 84 Baseline BP Pulse Ox 98 Oxygen Delivery Method Oxygen Delivery Method [1 (Initial Baseline)] Oxygen Delivery Method [2] Oxygen Flow Rate (L/min) Oxygen Flow Rate (L/min) [1 (Initial Baseline)] Oxygen Flow Rate (L/min) [2] EtCo2 - Document during CPR and with ROSC EtCo2 - Document during CPR and with ROSC [1 (Initial Baseline)] EtCo2 - Document during CPR and with ROSC [2] Positive well nourished and well developed General Appearance ED: well developed HEENT Reports normocephalic, head/scalp atraumatic and moist mucous membranes Eyes PERRL and EOMs intact bilaterally Neck no lymphadenopathy, supple and no JVD Resp normal respiratory effort and clear to auscultation bilaterally Cardio regular rhythm and no murmurs Rate: tachycardic Peripheral Pulses: pulses 2+ throughout GI normal to inspection, nondistended, normoactive bowel sounds and non-tender Palpation: soft Back/Spine no CVA tenderness and normal ROM Extremity normal to inspection General Extremety ED: Negative for edema General Extremity: Negative for edema Neuro oriented x3 and CN's II-XII intact bilaterally Sensorium / Orientation: alert Motor Exam: strength 5/5 throughout Psych mental status grossly normal Mood & Affect: Negative for depressed or tearful Skin no rashes or lesions noted and no wounds MDM MDM MDM Narrative Medical decision making narrative: Differential diagnosis includes cardiac dysrhythmia acute coronary syndrome electrolyte abnormalities NSTEMI type II troponin elevation EKG demonstrates a widened QRS at 465 ms right bundle branch block. It seems very regular in the 180s occasionally down to 155 but with very little variability. There is no change with Valsalva maneuvers. 6 mg and 12 mg of adenosine did not result in any pause. Patient provided informed written consent for the use of procedural sedation for cardioversion. I feel cardioversion is indicated given his chest discomfort his blood pressure is down to 88/67 and he feels generally fatigued. White count 12.8 hemoglobin 16.2 platelet count 295 troponin 178 TSH 2.560 magnesium 2.3 potassium 4.4 sodium 139 creatinine 1.2. My independent interpretation of the chest x-ray is no acute process. Patient received procedural sedation dose of etomidate at 0.15 mg/kg bolus. Once adequate sedation was achieved a 200 J synchronized shock was delivered which did not cardiovert him. A second shock delivered at 250 J resulted in return to a sinus rhythm. Patient recovered from sedation without incident. I discussed the case with on-call enrollment clerk Dr. Hamm. Her recommendation is for metoprolol 25 mg twice daily and to follow-up with electrophysiology in the office. I provided him with Dr. Heredia's number at [facility] As well as Dr. Baez's number here at the hospital. Patient is comfortable with this plan return if worsening or concerns History & Record Review Discussion w/independent historian: Patient and Family Additional record(s) reviewed:: Prior outpatient record, Prior ED visit and Prior labs Lab Data Attestation: I reviewed the patient's lab results. Labs: Laboratory Results - last 24 hr 07/29/24 11:00 WBC 12.8 H RBC 6.07 Hgb 16.2 Hct 49.7 MCV 81.9 MCH 26.7 L MCHC 32.6 RDW Std Deviation 43.9 RDW Coeff of Karma 14.6 Plt Count 295 MPV 10.7 Immature Gran % (Auto) 0.200 Neut % (Auto) 57.6 Lymph % (Auto) 33.8 [place] % (Auto) 6.9 Eos % (Auto) 0.9 Baso % (Auto) 0.6 Absolute Neuts (auto) 7.4 Absolute Lymphs (auto) 4.34 Nucleated RBC % 0 Sodium 139 Potassium 4.4 Chloride 105 Carbon Dioxide 23.1 Anion Gap 11 BUN 17 Creatinine 1.20 Estim Creat Clear Calc 83.61 Est GFR (MDRD) Non-Af 75 BUN/Creatinine Ratio 13.8 Glucose 124 H Calcium 9.4 Magnesium 2.3 H Troponin T High Sens 178 H* TSH 2.560 Radiography Diagnostic Testing: Clinical Impression(s) from Imaging Studies Chest X-Ray 07/29/24 12:15 IMPRESSION: No acute cardiopulmonary process. Reading Location: [facility] EKG Initial EKG: Attestation: I personally reviewed and interpreted this EKG as follows: Comments: Wide QRS tachycardia and a right bundle branch block pattern at a rate of 187 bpm Prior EKG tracings: available for review Follow-up EKG: Attestation: I personally reviewed and interpreted this EKG as follows: Comments: Normal sinus rhythm ventricular rate of [address]-T wave abnormalities noted anterior lateral and inferior which I think is most likely rate dependent from his previous tachycardia. Prior EKG tracings: available for review Management Discussion w/another healthcare provider: Lift Operator (Dr. Hamm (cardiology)) Procedures Procedural Sedation 1 (Initial Baseline): Consent Signed: Yes Any Problems With Anesthesia: No You/Your family experience fever (hyperthermia) w/anesthesia: No Sedation medication: Etomidate Dose: 13 Route: IV Total Moderate Sedation Units: 3 Maliampati Score: Class I ASA Classification: I Discharge Plan Triage Chief Complaint: Chest Pain ED Provider: Abisai Carlson Dx/Rx/DC Orders Clinical Impression: Paroxysmal supraventricular tachycardia, Chest pain Instructions: ED Understanding Supraventricular Tachycardia (SVT) Prescriptions: New metoprolol tartrate 25 mg tablet 25 mg PO BID Qty: 60 0RF Primary Care Provider: Gagan Engel Referrals: Gagan Engel, [facility] [Primary Care Provider] - Trevon Heredia MD [Non-Staff] - (at [facility] for EP cardiology) Dougie Baez MD [Med Staff - Active Staff] - As soon as possible (for local EP Cardiology) Print Language: Sudanese Disposition Disposition: Home, Self Care Discharge Date/Time: 07/29/24 13:29
== END 2024-07-29 13:29 | disposition home or self-care (01) ==
PROVIDERS: Emergency Provider Emergency Medicine; PCP Physician Assistant; Visit Provider Emergency Medicine
DX: I47.10 Supraventricular tachycardia, unspecified (principal); R07.89 Other chest pain
CPT/HCPCS: 71045; 80048; 83735; 84443; 84484; 85025; 92960; 93005; 96374; 96375; 96376; 99284; J0153